=== PATIENT | female | born 1960 | race Caucasian/White ===

== ENCOUNTER → 2017-02-07 | Outpatient (CLI) | payer MEDICARE, OTHER | LOC: RAD 08:54 | PROVIDERS: ATTEND Physician Assistant Medical | DX: Z12.2 Encounter for screening for malignant neoplasm of respiratory organs (principal); F17.210 Nicotine dependence, cigarettes, uncomplicated | CPT/HCPCS: G0297 ==

== ENCOUNTER 2017-03-02 22:57 | Emergency (ER) | payer MEDICARE, OTHER ==
--- NOTE | 2017-03-02 23:36 | RADIOLOGY REPORT (SQ) ---
EXAM DESCRIPTION: CHEST SINGLE VIEW COMPLETED DATE/TIME: 03/02/2017 11:18 pm REASON FOR STUDY: SOB COMPARISON: 05/01/2015. EXAM PARAMETERS: NUMBER OF VIEWS: One view. TECHNIQUE: Single frontal radiographic view of the chest acquired. RADIATION DOSE: NA LIMITATIONS: None. FINDINGS: LUNGS AND PLEURA: Chronic interstitial changes. No infiltrates, masses or pneumothorax. N o pleural effusion. MEDIASTINUM AND HILAR STRUCTURES: No masses. Contour normal. HEART AND VASCULAR STRUCTURES: Heart normal in size. Normal vasculature. BONES: No acute findings. HARDWARE: Hardware in the cervical spine. OTHER: No other significant finding. IMPRESSION: NO ACUTE RADIOGRAPHIC FINDING IN THE CHEST. TECHNICAL DOCUMENTATION: JOB ID: [id number]
[2017-03-02 23:42] LABS: ABSOLUTE EOSINOPHILS # (AUTO) 0.1 10^3/uL (0.0-0.6); ABSOLUTE LYMPHOCYTES (AUTO) 3.1 10^3/uL (0.5-4.7); ABSOLUTE NEUT (AUTO) 6.5 10^3/uL (1.7-8.2); BASOPHILS % (AUTO) 0.3 % (0-2); EOSINOPHILS % (AUTO) 0.9 % (0-6); HEMATOCRIT 41.5 % (36.0-47.0); HEMOGLOBIN 14.1 g/dL (12.0-15.5); HGB HCT DIFFERENCE 0.8; MEAN CORPUSCULAR HGB CONC 33.8 g/dL (32.0-36.0); MEAN CORPUSCULAR VOLUME 92 fl (80-97); RED BLOOD COUNT 4.53 10^6/uL (3.72-5.28); RED CELL DISTRIBUTION WIDTH 14.8 % (11.5-14.0); SEGMENTED NEUTROPHILS % (AUTO) 60.8 % (42-78); WHITE BLOOD COUNT 10.6 10^3/uL (4.0-10.5)
[2017-03-02 23:53] LABS: ALANINE AMINOTRANSFERASE 25 U/L (9-52); ALBUMIN 3.9 g/dL (3.5-5.0); ALKALINE PHOSPHATASE 126 U/L (38-126); ANION GAP 10 (5-19); ASPARTATE AMINO TRANSFERASE 16 U/L (14-36); BILIRUBIN,DIRECT 0.4 mg/dL (0.0-0.4); BILIRUBIN,TOTAL 0.5 mg/dL (0.2-1.3); BLOOD UREA NITROGEN 11 mg/dL (7-20); CALCIUM 9.6 mg/dL (8.4-10.2); CARBON DIOXIDE 28 mmol/L (22-30); CHLORIDE 102 mmol/L (98-107); CREATININE RESULT 0.81 mg/dL (0.52-1.25); GLUCOSE 75 mg/dL (75-110); POTASSIUM 4.4 mmol/L (3.6-5.0); SODIUM 139.6 mmol/L (137-145); TOTAL PROTEIN 6.8 g/dL (6.3-8.2)
[2017-03-03 00:06] LABS: CREATINE KINASE MB 0.74 ng/mL (<4.55)
[2017-03-03 00:08] LABS: TROPONIN I < 0.012 ng/mL
[2017-03-03 00:10] LABS: APPEARANCE,URINE CLEAR; BILIRUBIN,URINE NEGATIVE (NEGATIVE); GLUCOSE, URINE NEGATIVE (NEGATIVE); KETONES,URINE NEGATIVE (NEGATIVE); LEUKOCYTE ESTERASE,URINE NEGATIVE (NEGATIVE); NITRITE,URINE NEGATIVE (NEGATIVE); PROTEIN,URINE NEGATIVE (NEGATIVE); URINE SPECIFIC GRAVITY 1.005; UROBILINOGEN,URINE NEGATIVE mg/dL (<2.0)
[2017-03-03 00:11] LABS: RBC,URINE 0-1 /HPF; WBC,URINE 0-1 /HPF
[2017-03-03] MEDS ORDERED: LIDOCAINE 5% (700 MG) TRANSDERMAL ADH..PATCH TP ONE (01:59)
[2017-03-03] MEDS ORDERED: NAPROXEN 250 MG TABLET PO ONE (01:59)
--- NOTE | 2017-03-03 02:02 | ER Document Report ---
ED General - General Chief Complaint: Shortness Of Breath Stated Complaint: SIDE PAIN Time Seen by Provider: 03/03/17 01:38 Notes: Patient is a 56-year-old female with a past medical history of COPD, chronic pain currently on 60 mg of oxycodone daily as well as 100 mcg fentanyl patch who presents with 3 days of progressively worsening pain over her left lower ribs. Describes as a severe, constant, stabbing pain that is worsened by any form of movement or taking a deep breath. States the pain can be so bad that it "takes my breath away" but denies any shortness of breath at baseline. No hemoptysis, estrogen use or history of unprovoked DVT or pulmonary embolus. She has not seen her primary care doctor regarding today's concerns. She denies any history of similar symptoms in the past. Denies any acute injury. TRAVEL OUTSIDE OF THE [place] IN LAST 30 DAYS: No - Related Data Allergies/Adverse Reactions: Sulfa (Sulfonamide Antibiotics) Allergy (Verified 05/01/15 14:48) Past Medical History - General Information source: Patient - Social History Smoking Status: Current Every Day Smoker Frequency of alcohol use: None Drug Abuse: None Lives with: Spouse/Significant other Family History: Reviewed & Not Pertinent Patient has suicidal ideation: No Patient has homicidal ideation: No - Past Medical History Cardiac Medical History: Reports: Hx Hypercholesterolemia Denies: Hx Congestive Heart Failure Pulmonary Medical History: Reports: Hx COPD Neurological Medical History: Reports: Hx Migraine - Hemiplegic migraine. Denies: Hx Cerebrovascular Accident Renal/ Medical History: Denies: Hx Peritoneal Dialysis Psychiatric Medical History: Reports: Hx Depression Past Surgical History: Reports: Hx Section - Immunizations Immunizations up to date: Yes Hx Diphtheria, Pertussis, Tetanus Vaccination: Yes Review of Systems - Review of Systems Notes: Constitutional: Negative for fever. HENT: Negative for sore throat. Eyes: Negative for visual changes. Cardiovascular: Negative for chest pain. Respiratory: Negative for shortness of breath. Gastrointestinal: Negative for abdominal pain, vomiting or diarrhea. Genitourinary: Negative for dysuria. Musculoskeletal: Positive for left rib pain Skin: Negative for rash. Neurological: Negative for headaches, weakness or numbness. 10 point ROS negative except as marked above and in HPI. Physical Exam - Vital signs Vitals: Temp Pulse Resp BP Pulse Ox 97.8 F 95 18 138/83 H 94 03/02/17 22:59 03/02/17 22:59 03/02/17 22:59 03/02/17 22:59 03/02/17 22:59 Interpretation: Normal Notes: PHYSICAL EXAMINATION: GENERAL: Well-appearing, well-nourished and in no acute distress. HEAD: Atraumatic, normocephalic. EYES: Pupils equal round and reactive to light, extraocular movements intact, sclera anicteric, conjunctiva are normal. ENT: nares patent, oropharynx clear without exudates. Moist mucous membranes. NECK: Normal range of motion, supple without lymphadenopathy LUNGS: Breath sounds clear to auscultation bilaterally and equal. No wheezes rales or rhonchi. HEART: Regular rate and rhythm without murmurs Chest wall: Exquisite pain on palpation of the left lower ribs. ABDOMEN: Soft, nontender, normoactive bowel sounds. No guarding, no rebound. No masses appreciated. EXTREMITIES: Normal range of motion, no pitting or edema. No cyanosis. NEUROLOGICAL: No focal neurological deficits. Moves all extremities spontaneously and on command. PSYCH: Normal mood, normal affect. SKIN: Warm, Dry, normal turgor, no rashes or lesions noted. Course - Re-evaluation Re-evalutation: 03/03/17 01:57 Patient presents with 3 days of progressively worsening left lower rib pain. This is completely reproducible on exam and with movement. She notes that any movement of the rib area worsens pain including deep breath. Although in triage it was noted as shortness of breath she denies any actual shortness of breath stating only that "sometimes the pain is so bad it takes my breath away" . Denies any hemoptysis, estrogen use, or any history of unprovoked DVT or pulmonary embolus. She is not tachycardic or tachypneic in triage or at time of my assessment. Overall I have a low clinical suspicion for an acute pulmonary embolus. Her Wells score is 0. I have reviewed with the patient the low probability of an acute pulmonary embolus and have reviewed signs and symptoms that would concern me and have requested her to return to the emergency department should she develop any other signs or symptoms of this diagnosis. I have also discussed with her the option of proceeding with d- dimer assay testing with the associated risk of a potential false positive result. She is in agreement with avoiding this test at this time. Chest x-ray is otherwise clear without any evidence of pneumothorax, rib fracture or lytic lesions. Labs unremarkable. At this time will discharge with return precautions and follow-up recommendations. Verbal discharge instructions given a the bedside and opportunity for questions given. Medication warnings reviewed. Patient is in agreement with this plan and has verbalized understanding of return precautions and the need for primary care follow-up in the next 24-72 hours. - Vital Signs Vital signs: Temp Pulse Resp BP Pulse Ox 97.8 F 89 20 148/86 H 95 03/02/17 22:59 03/03/17 02:15 03/03/17 02:15 03/03/17 02:15 03/03/17 02:15 - Laboratory Result Diagrams: 03/02/17 23:15 03/02/17 23:15 Laboratory results interpreted by me: 03/02/17 23:15 WBC 10.6 H RDW 14.8 H - Diagnostic Test Radiology reviewed: Image reviewed, Reports reviewed Radiology results interpreted by me: 03/03/17 02:03 Chest x-ray: No acute infiltrate or pneumothorax - EKG Interpretation by Me Additional EKG results interpreted by me: 03/03/17 02:34 Sinus rhythm. Rate 96. No ST elevations or depressions. QTC is 430. Discharge - Discharge Clinical Impression: Rib pain on left side Condition: Good Disposition: HOME, SELF-CARE Additional Instructions: Your chest wall pain is due to inflammation of your ribs. This pain can last for up to 6 weeks. It is very important that you continue to take purposeful deep breaths. For your pain: Continue to take naproxen 500mg every 6 hours or Tylenol 1000 mg every 6 hours. Apply local lidocaine to the area per bottle instructions. There is a product sold [id number] called "Aspercreme with lidocaine" that you can use for this purpose. Please follow-up with her primary care doctor in the next 2-3 days. Return to the emergency department immediately if you develop worsening shortness of breath, increased pain, begin coughing blood, pass out, or have any other symptoms that are worrisome to you.
[2017-03-03 02:16] VITALS: BP 148/86
--- NOTE | 2017-03-03 11:03 | EKG REPORT ---
SEVERITY:- OTHERWISE NORMAL ECG - SINUS RHYTHM LOW VOLTAGE IN FRONTAL LEADS : Confirmed by: Nurys Nice MD 03-Mar-2017 11:02:25
== END 2017-03-03 02:16 | disposition home or self-care (01) ==
LOC: ER 22:57
DX: R07.81 Pleurodynia (principal); J44.9 Chronic obstructive pulmonary disease, unspecified; G89.29 Other chronic pain; F17.200 Nicotine dependence, unspecified, uncomplicated; E78.00 Pure hypercholesterolemia, unspecified; Z79.891 Long term (current) use of opiate analgesic
CPT/HCPCS: 93005; 99285; 36415; 82553; 85025; 80053; 81001; 84484; 71010; 93010; A9270

== ENCOUNTER 2017-04-28 21:52 | Emergency (ER) | payer MEDICARE, OTHER ==
--- NOTE | 2017-04-28 23:08 | RADIOLOGY REPORT (SQ) ---
EXAM DESCRIPTION: CHEST SINGLE VIEW COMPLETED DATE/TIME: 04/28/2017 10:59 pm REASON FOR STUDY: shortness of breath COMPARISON: 03/02/2017 EXAM PARAMETERS: NUMBER OF VIEWS: One view. TECHNIQUE: Single frontal radiographic view of the chest acquired. RADIATION DOSE: NA LIMITATIONS: None. FINDINGS: LUNGS AND PLEURA: No acute opacities, masses or pneumothorax. No pleural effusion. MEDIASTINUM AND HILAR STRUCTURES: Stable. HEART AND VASCULAR STRUCTURES: Heart normal in size. Normal vasculature. BONES: No acute findings. HARDWARE: None in the chest. OTHER: No other significant finding. IMPRESSION: NO ACUTE RADIOGRAPHIC FINDING IN THE CHEST. TECHNICAL DOCUMENTATION: JOB ID: [id number]
[2017-04-28] MEDS ORDERED: PREDNISONE 20 MG TABLET PO ONE (23:58)
[2017-04-28] MEDS ORDERED: IPRATROPIUM/ALBUTEROL 0.5-2.5 MG/3 ML AMPUL NEB ONE (23:58)
--- NOTE | 2017-04-28 23:58 | ER Document Report ---
ED Respiratory Problem - General Mode of Arrival: Ambulatory Information source: Patient TRAVEL OUTSIDE OF THE [place] IN LAST 30 DAYS: No - HPI Patient complains to provider of: Cough, Short of breath Onset: Just prior to arrival Duration: Worse/persistent Quality of pain: No pain <ZARIA REDDY - Last Filed: 04/29/17 01:11> <MANUEL SUAREZ - Last Filed: 04/29/17 02:16> - General Chief Complaint: Shortness Of Breath Stated Complaint: DIFFICULTY BREATHING Time Seen by Provider: 04/28/17 23:42 Notes: Patient is a 57 year old female that presents to the emergency department today with complaints of shortness of breath with a productive cough with yellow sputum. Patient just finished a ten day course of levaquin yesterdaty. Patient states that she was started on the antibiotics Dr. Sanz for "bronchitis". Patient states that she was not started on any steroids. Patient is on 2L of home oxygen daily but patient states she is still short of breath. Patient denies any fevers. (ZARIA REDDY) - Related Data Allergies/Adverse Reactions: Sulfa (Sulfonamide Antibiotics) Allergy (Verified 04/28/17 22:30) Past Medical History - General Information source: Patient - Social History Smoking Status: Current Every Day Smoker Cigarette use (# per day): Yes Frequency of alcohol use: None Drug Abuse: None Lives with: Family Family History: Reviewed & Not Pertinent Patient has suicidal ideation: No Patient has homicidal ideation: No - Past Medical History Cardiac Medical History: Reports: Hx Hypercholesterolemia Pulmonary Medical History: Reports: Hx COPD Neurological Medical History: Reports: Hx Migraine - Hemiplegic migraine Psychiatric Medical History: Reports: Hx Depression Past Surgical History: Reports: Hx Section - Immunizations Immunizations up to date: Yes Hx Diphtheria, Pertussis, Tetanus Vaccination: Yes <ZARIA REDDY - Last Filed: 04/29/17 01:11> Review of Systems - Review of Systems Constitutional: denies: Fever EENT: No symptoms reported Cardiovascular: No symptoms reported Respiratory: See HPI, Cough, Short of breath Gastrointestinal: No symptoms reported Genitourinary: No symptoms reported Female Genitourinary: No symptoms reported Musculoskeletal: No symptoms reported Skin: No symptoms reported Hematologic/Lymphatic: No symptoms reported Neurological/Psychological: No symptoms reported -: Yes All other systems reviewed and negative <JULIEN REDDYON - Last Filed: 04/29/17 01:11> Physical Exam <MAUREENZARIA - Last Filed: 04/29/17 01:11> <MANUEL SUAREZ - Last Filed: 04/29/17 02:16> - Vital signs Vitals: Temp Pulse Resp BP Pulse Ox 97.5 F 88 20 105/63 97 04/28/17 22:22 04/28/17 22:22 04/28/17 22:22 04/28/17 22:22 04/28/17 22:22 - Notes Notes: Physical Exam: General: Alert, appears well. HEENT: Normocephalic. Atraumatic. PERRL. Extraocular movements intact. Oropharynx clear. Neck: Supple. Non-tender. Respiratory: No respiratory distress, 100% O2 saturation on 2L of oxygen, patient is on 2L of oxygen at home. Diffuse wheezing with rhonchi. Slightly tachypneic. Cardiovascular: Regular rate and rhythm. Abdominal: Normal Inspection. Non-tender. No distension. Normal Bowel Sounds. Back: Non-tender. No deformity or step off. Extremities: Moves all four extremities. Upper extremities: Normal inspection. Normal ROM. Lower extremities: Normal inspection. No edema. Normal ROM. Neurological: Normal cognition. AAOx4. Normal speech. Psychological: Normal affect. Normal Mood. Skin: Warm. Dry. Normal color. (ZARIA REDDY) Course - Laboratory Result Diagrams: 04/28/17 23:49 04/28/17 23:49 <MAUREENZARIA - Last Filed: 04/29/17 01:11> - Laboratory Result Diagrams: 04/28/17 23:49 04/28/17 23:49 - Diagnostic Test Radiology reviewed: Image reviewed, Reports reviewed - Chest x-ray does show some COPD, there are no acute changes. - EKG Interpretation by Me EKG shows normal: Sinus rhythm, Russell, Intervals, QRS Complexes, ST-T Waves Rate: Normal - 95 Rhythm: NSR <MANUEL SUAREZ - Last Filed: 04/29/17 02:16> - Re-evaluation Re-evalutation: 04/29/17 02:03 At this time the patient's pulse ox is 97% while she is sitting up talking on 2 L. Lungs are actually quite clear now and she does admit that her breathing feels much better after the breathing treatments here. She has not been able to get a sputum specimen since she arrived, and thinks if she could get a cigarette that it would help her bring up the sputum. (MANUEL SUAREZ) - Vital Signs Vital signs: Temp Pulse Resp BP Pulse Ox 97.5 F 98 12 105/66 100 04/28/17 22:22 04/28/17 23:58 04/29/17 00:01 04/29/17 00:01 04/29/17 00:01 - Laboratory Laboratory results interpreted by me: 04/28/17 04/28/17 23:49 23:49 WBC 11.7 H RDW 14.4 H Absolute Neutrophils 8.8 H Chloride 108 H Glucose 117 H Creatine Kinase 157 H Discharge <ZARIA REDDY - Last Filed: 04/29/17 01:11> <MANUEL SUAREZ - Last Filed: 04/29/17 02:16> - Discharge Clinical Impression: COPD exacerbation Condition: Stable Disposition: HOME, SELF-CARE Additional Instructions: Start the prednisone later today. Drink plenty of fluids. Use your nebulizer every 4 hours. Follow-up with your doctor if not continuing to improve. RETURN TO THE EMERGENCY ROOM IF ANY NEW OR WORSENING SYMPTOMS. Prescriptions: Prednisone [Deltasone 10 mg Tablet] 10 mg PO ASDIR PRN #21 tablet PRN Reason: Scribe Attestation: 04/29/17 00:32 I personally performed the services described in the documentation, reviewed and edited the documentation which was dictated to the scribe in my presence, and it accurately records my words and actions. (MANUEL SUAREZ) Scribe Documentation - Scribe Written by Ju:: Ju Loyd, 04/29/2017 0136 acting as scribe for :: Fili <ZARIA REDDY - Last Filed: 04/29/17 01:11>
[2017-04-29 00:13] LABS: ABSOLUTE EOSINOPHILS # (AUTO) 0.1 10^3/uL (0.0-0.6); ABSOLUTE LYMPHOCYTES (AUTO) 2.2 10^3/uL (0.5-4.7); ABSOLUTE MONOCYTES (AUTO) 0.7 10^3/uL (0.1-1.4); ABSOLUTE NEUT (AUTO) 8.8 10^3/uL (1.7-8.2); BASOPHILS % (AUTO) 0.3 % (0-2); EOSINOPHILS % (AUTO) 0.6 % (0-6); HEMATOCRIT 41.6 % (36.0-47.0); HEMOGLOBIN 13.9 g/dL (12.0-15.5); HGB HCT DIFFERENCE 0.1; LYMPHOCYTES % (AUTO) 18.6 % (13-45); MEAN CORPUSCULAR HEMOGLOBIN 31.5 pg (27.0-33.4); MEAN CORPUSCULAR HGB CONC 33.5 g/dL (32.0-36.0); MEAN CORPUSCULAR VOLUME 94 fl (80-97); RED BLOOD COUNT 4.42 10^6/uL (3.72-5.28); RED CELL DISTRIBUTION WIDTH 14.4 % (11.5-14.0); SEGMENTED NEUTROPHILS % (AUTO) 74.5 % (42-78); WHITE BLOOD COUNT 11.7 10^3/uL (4.0-10.5)
[2017-04-29 00:27] LABS: ALANINE AMINOTRANSFERASE 22 U/L (9-52); ALKALINE PHOSPHATASE 93 U/L (38-126); ANION GAP 11 (5-19); ASPARTATE AMINO TRANSFERASE 23 U/L (14-36); BILIRUBIN,DIRECT 0.4 mg/dL (0.0-0.4); BILIRUBIN,TOTAL 0.5 mg/dL (0.2-1.3); BLOOD UREA NITROGEN 10 mg/dL (7-20); CALCIUM 9.3 mg/dL (8.4-10.2); CARBON DIOXIDE 23 mmol/L (22-30); CHLORIDE 108 mmol/L (98-107); CREATINE KINASE 157 U/L (30-135); GLUCOSE 117 mg/dL (75-110); SODIUM 141.5 mmol/L (137-145); TOTAL PROTEIN 6.8 g/dL (6.3-8.2)
[2017-04-29 00:38] LABS: CREATINE KINASE MB 0.93 ng/mL (<4.55)
[2017-04-29 00:44] LABS: TROPONIN I < 0.012 ng/mL
[2017-04-29] MEDS ORDERED: ALBUTEROL SULFATE 0.083% NEB 2.5 MG/3 ML AMPUL NEB ONE (01:28)
[2017-04-29 02:25] VITALS: BP 110/70
--- NOTE | 2017-04-29 09:57 | EKG REPORT ---
SEVERITY:- BORDERLINE ECG - SINUS RHYTHM LOW VOLTAGE EKG : Confirmed by: Tavo Vang MD 29-Apr-2017 09:57:02
== END 2017-04-29 02:18 | disposition home or self-care (01) ==
LOC: ER 21:52
DX: J44.1 Chronic obstructive pulmonary disease with (acute) exacerbation (principal); Z99.81 Dependence on supplemental oxygen; R06.02 Shortness of breath; R05 Cough; Z88.2 Allergy status to sulfonamides; F17.210 Nicotine dependence, cigarettes, uncomplicated
CPT/HCPCS: 93005; 94640 ×2; 99285; 36415; 82553; 82550; 85025; 80053; 84484; 83880; 71010; 93010; A9270 ×3; J7512; J7620

== ENCOUNTER 2018-05-13 21:19 | Emergency (ER) | payer MEDICARE, OTHER ==
[2018-05-13] MEDS ORDERED: LIDOCAINE 5% (700 MG) TRANSDERMAL ADH..PATCH TP ONE (21:53)
[2018-05-13] MEDS ORDERED: ACETAMINOPHEN 325 MG TABLET PO ONE (21:53)
[2018-05-13] MEDS ORDERED: KETOROLAC TROMETHAMINE 60 MG/2 ML SDV IM ONE (21:53)
--- NOTE | 2018-05-13 21:54 | ER Document Report ---
ED General - General Chief Complaint: Knee Pain Stated Complaint: RIGHT KNEE PAIN Time Seen by Provider: 05/13/18 21:52 Notes: Patient is a 58-year-old female who presents with right knee pain. Patient reports that the pain started after she stepped down off of a ladder hurt her right knee "pop". She states that she developed an immediate, throbbing, constant pain to the knee that has made it difficult to ambulate. She notes any attempt at ranging the knee or walking worsens the pain. Symptoms have worsened since onset. She denies any history of similar injury to the knee in the past. She has not seen her general doctor regarding today's concerns. She denies any additional injuries or concerns today. She denies any focal weakness or numbness. TRAVEL OUTSIDE OF THE [place] IN LAST 30 DAYS: No - Related Data Allergies/Adverse Reactions: Sulfa (Sulfonamide Antibiotics) Allergy (Verified 04/28/17 22:30) Past Medical History - General Information source: Patient - Social History Smoking Status: Never Smoker Frequency of alcohol use: None Drug Abuse: None Lives with: Spouse/Significant other Family History: Reviewed & Not Pertinent - Past Medical History Cardiac Medical History: Reports: Hx Hypercholesterolemia Denies: Hx Congestive Heart Failure Pulmonary Medical History: Reports: Hx COPD Neurological Medical History: Reports: Hx Migraine - Hemiplegic migraine. Denies: Hx Cerebrovascular Accident Renal/ Medical History: Denies: Hx Peritoneal Dialysis Psychiatric Medical History: Reports: Hx Depression Past Surgical History: Reports: Hx Section - Immunizations Immunizations up to date: Yes Hx Diphtheria, Pertussis, Tetanus Vaccination: Yes Review of Systems - Review of Systems Notes: Constitutional: Negative for fever. HENT: Negative for sore throat. Eyes: Negative for visual changes. Cardiovascular: Negative for chest pain. Respiratory: Negative for shortness of breath. Gastrointestinal: Negative for abdominal pain, vomiting or diarrhea. Genitourinary: Negative for dysuria. Musculoskeletal: Positive for right knee injury Skin: Negative for rash. Neurological: Negative for headaches, weakness or numbness. 10 point ROS negative except as marked above and in HPI. Physical Exam - Vital signs Vitals: Temp Pulse Resp BP Pulse Ox 98.6 F 88 14 94/55 L 91 L 05/13/18 21:24 05/13/18 21:24 05/13/18 21:24 05/13/18 21:24 05/13/18 21:24 Notes: PHYSICAL EXAMINATION: GENERAL: Well-appearing, well-nourished and in no acute distress. HEAD: Atraumatic, normocephalic. EYES: Pupils equal round and reactive to light, extraocular movements intact, sclera anicteric, conjunctiva are normal. ENT: nares patent, oropharynx clear without exudates. Moist mucous membranes. NECK: Normal range of motion, supple without lymphadenopathy LUNGS: Breath sounds clear to auscultation bilaterally and equal. No wheezes rales or rhonchi. HEART: Regular rate and rhythm without murmurs, 2+ DP pulses bilaterally ABDOMEN: Soft, nontender, normoactive bowel sounds. No guarding, no rebound. No masses appreciated. EXTREMITIES: Normal range of motion both actively and passively at the right but there is obvious discomfort with flexion of the knee. Palpation of the medial aspect of the knee joint does elicit significant pain. No bruising to the knee although there is mild swelling relative to the left. NEUROLOGICAL: No focal neurological deficits. Moves all extremities spontaneously and on command. PSYCH: Normal mood, normal affect. SKIN: Warm, Dry, normal turgor, no rashes or lesions noted. Course - Re-evaluation Re-evalutation: 05/13/18 23:24 No evidence of a septic joint, gout flare, dislocation, or fracture on exam and imaging. Vitals wnl. At this time, I do not see an indication for labs or further imaging. KAYLEIGH normal. Suspect a possible meniscal injury and I have informed the patient that she will need to follow-up with orthopedic surgery if she is not having improvement of her pain over the next 1-2 weeks with conservative measures for consideration of an MRI. At this time will discharge with return precautions and follow-up recommendations. Verbal discharge instructions given a the bedside and opportunity for questions given. Medication warnings reviewed. Patient is in agreement with this plan and has verbalized understanding of return precautions and the need for primary care follow-up in the next 24-72 hours. - Vital Signs Vital signs: Temp Pulse Resp BP Pulse Ox 97.7 F 75 18 123/62 93 05/14/18 00:03 05/14/18 00:03 05/14/18 00:03 05/14/18 00:03 05/14/18 00:03 - Diagnostic Test Radiology reviewed: Image reviewed, Reports reviewed Radiology results interpreted by me: 05/13/18 23:26 Right knee x-ray: No acute fracture or dislocation Discharge - Discharge Clinical Impression: Right knee pain Qualifiers: Chronicity: acute Qualified Code(s): M25.561 - Pain in right knee Condition: Good Disposition: HOME, SELF-CARE Additional Instructions: Your x-ray does not show any acute fracture today. You likely have a ligamentous strain although a meniscal injury is of concern. You should take naproxen 440 mg (2 [id number]-bjf-napgaoj tablets) every 12 hours for pain. Continue to apply ice to the area is much your able. Please follow-up with your primary care physician if you do not have improving your symptoms in the next 1-2 weeks. They may wish to consider an orthopedic referral and MRI. Please return immediately if you develop weakness, numbness, spreading redness from the area, or any other symptoms that are concerning to you. Referrals: JAREN SHARMA MD [Primary Care Provider] - Follow up as needed
--- NOTE | 2018-05-13 22:34 | RADIOLOGY REPORT (SQ) ---
EXAM DESCRIPTION: KNEE RIGHT 3 VIEWS COMPLETED DATE/TIME: 05/13/2018 10:26 pm REASON FOR STUDY: knee pain, injury COMPARISON: None. NUMBER OF VIEWS: Three views. TECHNIQUE: AP, lateral, and sunrise patella radiographic images acquired of the right knee. LIMITATIONS: None. FINDINGS: MINERALIZATION: Normal. BONES: No acute fracture or dislocation. No worrisome bone lesions. JOINT: No effusion. SOFT TISSUES: No soft tissue swelling. No radio-opaque foreign body. OTHER: No other significant finding. IMPRESSION: NEGATIVE STUDY OF THE RIGHT KNEE. NO RADIOGRAPHIC EVIDENCE OF ACUTE INJURY. TECHNICAL DOCUMENTATION: JOB ID: [id number] [employer]- All Rights Reserved Reading location - IP/workstation name: [email or web address]
[2018-05-14 00:05] VITALS: BP 123/62
== END 2018-05-14 00:03 | disposition home or self-care (01) ==
LOC: ER 21:19
DX: M25.561 Pain in right knee (principal); E78.00 Pure hypercholesterolemia, unspecified; J44.9 Chronic obstructive pulmonary disease, unspecified; Z88.2 Allergy status to sulfonamides
CPT/HCPCS: 99283; 96372; 73562; L1830; A9270; J1885

== ENCOUNTER 2019-02-11 10:03 | Emergency (ER) | payer MEDICARE, OTHER ==
--- NOTE | 2019-02-11 11:06 | ER Document Report ---
ED Medical Screen (RME) - General Chief Complaint: Foot Pain Stated Complaint: SWOLLEN FOOT Time Seen by Provider: 02/11/19 11:00 Primary Care Provider: JAREN SHARMA MD [Primary Care Provider] - Follow up as needed Mode of Arrival: Ambulatory Information source: Patient TRAVEL OUTSIDE OF THE [place] IN LAST 30 DAYS: No - HPI Patient complains to provider of: RIGHT FOOT PAIN/SWELLING Notes: 02/11/19 11:05 Patient here with complaints of right foot pain and swelling for the last week. No injury. No fever. No redness. No numbness, tingling, weakness. She does have a history of a DVT 2 years ago after having surgery. She is not currently on anticoagulants. Exam Pitting edema noted to the right lower extremity with swelling of the right foot and tenderness to the dorsum of the right foot. No redness. Normal pulse and sensation. Normal cap refill. There is some pitting edema to the left lower extremity as well but not as much as the right. Plan CBC, CMP, PT/PTT, x-ray of the right foot, venous Doppler of the right lower extremity. An initial examination was made on the patient as part of the triage process, and it was determined a more comprehensive evaluation was necessary. Initial labs were ordered and patient was transferred to another provider in the ED who assumed care and finished evaluation and plan. - Related Data Allergies/Adverse Reactions: Sulfa (Sulfonamide Antibiotics) Allergy (Verified 04/28/17 22:30) Past Medical History - Past Medical History Cardiac Medical History: Reports: Hx Hypercholesterolemia Denies: Hx Congestive Heart Failure Pulmonary Medical History: Reports: Hx COPD Neurological Medical History: Reports: Hx Migraine - Hemiplegic migraine. Denies: Hx Cerebrovascular Accident Renal/ Medical History: Denies: Hx Peritoneal Dialysis Psychiatric Medical History: Reports: Hx Depression Past Surgical History: Reports: Hx Section - Immunizations Immunizations up to date: Yes Hx Diphtheria, Pertussis, Tetanus Vaccination: Yes Physical Exam - Vital signs Vitals: Temp Pulse Resp BP Pulse Ox 97.7 F 106 H 16 120/57 L 92 02/11/19 10:09 02/11/19 10:09 02/11/19 10:02/11/19 10:02/11/19 10:09 Course - Vital Signs Vital signs: Temp Pulse Resp BP Pulse Ox 97.7 F 106 H 16 120/57 L 92 02/11/19 10:09 02/11/19 10:09 02/11/19 10:09 02/11/19 10:09 02/11/19 10:09 Doctor's Discharge - Discharge Referrals: JAREN SHARMA MD [Primary Care Provider] - Follow up as needed
[2019-02-11 11:37] LABS: INTERNATIONAL RATION (INR) 0.92; PROTHROMBIN TIME 12.8 SEC (11.4-15.4)
[2019-02-11 11:38] LABS: ABSOLUTE EOSINOPHILS # (AUTO) 0.1 10^3/uL (0.0-0.6); ABSOLUTE LYMPHOCYTES (AUTO) 1.5 10^3/uL (0.5-4.7); ABSOLUTE MONOCYTES (AUTO) 0.5 10^3/uL (0.1-1.4); ABSOLUTE NEUT (AUTO) 5.1 10^3/uL (1.7-8.2); BASOPHILS % (AUTO) 0.3 % (0-2); EOSINOPHILS % (AUTO) 0.9 % (0-6); HEMATOCRIT 43.9 % (36.0-47.0); HEMOGLOBIN 14.8 g/dL (12.0-15.5); LYMPHOCYTES % (AUTO) 20.8 % (13-45); MEAN CORPUSCULAR HEMOGLOBIN 31.1 pg (27.0-33.4); MEAN CORPUSCULAR HGB CONC 33.7 g/dL (32.0-36.0); MEAN CORPUSCULAR VOLUME 92 fl (80-97); MONOCYTES % (AUTO) 7.4 % (3-13); PLATELET COUNT 209 10^3/uL (150-450); RED BLOOD COUNT 4.76 10^6/uL (3.72-5.28); SEGMENTED NEUTROPHILS % (AUTO) 70.6 % (42-78); TOTAL CELLS COUNTED % (AUTO) 100 %; WHITE BLOOD COUNT 7.2 10^3/uL (4.0-10.5)
[2019-02-11 11:54] LABS: ALANINE AMINOTRANSFERASE 32 U/L (9-52); ALBUMIN 3.9 g/dL (3.5-5.0); ALKALINE PHOSPHATASE 104 U/L (38-126); ANION GAP 7 (5-19); ASPARTATE AMINO TRANSFERASE 25 U/L (14-36); BILIRUBIN,DIRECT 0.2 mg/dL (0.0-0.4); BILIRUBIN,TOTAL 0.3 mg/dL (0.2-1.3); BLOOD UREA NITROGEN 9 mg/dL (7-20); CALCIUM 9.7 mg/dL (8.4-10.2); CARBON DIOXIDE 28 mmol/L (22-30); CHLORIDE 109 mmol/L (98-107); GLUCOSE 101 mg/dL (75-110); POTASSIUM 4.5 mmol/L (3.6-5.0); SODIUM 143.6 mmol/L (137-145); TOTAL PROTEIN 6.4 g/dL (6.3-8.2)
--- NOTE | 2019-02-11 12:23 | RADIOLOGY REPORT (SQ) ---
EXAM DESCRIPTION: FOOT RIGHT COMPLETE COMPLETED DATE/TIME: 02/11/2019 12:10 pm REASON FOR STUDY: RIGHT FOOT PAIN/SWELLING COMPARISON: None. NUMBER OF VIEWS: Three views. TECHNIQUE: AP, lateral and oblique without weight bearing radiographic images acquired of the right foot. LIMITATIONS: None. FINDINGS: MINERALIZATION: Normal. BONES: No acute fracture or dislocation. No worrisome bone lesions. No significant osteophytes. JOINTS: No erosions. No renetta-articular osteopenia. No chondrocalcinosis. SOFT TISSUES: No swelling. No calcifications. OTHER: No other significant finding. IMPRESSION: NEGATIVE STUDY OF THE RIGHT FOOT. NO EXPLANATION FOR PAIN. TECHNICAL DOCUMENTATION: JOB ID: [id number] [employer]- All Rights Reserved Reading location - IP/workstation name: [email or web address]
--- NOTE | 2019-02-11 12:29 | RADIOLOGY REPORT (SQ) ---
EXAM DESCRIPTION: VENOUS UNILATERAL LOWER COMPLETED DATE/TIME: 02/11/2019 12:19 pm REASON FOR STUDY: RIGHT LEG SWELLING COMPARISON: None. TECHNIQUE: Dynamic and static kuhn scale and color images acquired of the right leg venous system. S elected spectral images acquired with additional compression and augmentation maneuvers. The contrala teral common femoral vein and saphenofemoral junction were also imaged. Images stored on PACS. LIMITATIONS: None. FINDINGS: COMMON FEMORAL: Normal phasicity, compression and augmentation. No visualized echogenic ma terial on kuhn scale. No defects on color images. FEMORAL: Normal compression and augmentation. No visualized echogenic material on kuhn scale. No defe cts on color images. POPLITEAL: Normal compression, augmentation. No visualized echogenic material on kuhn scale. No defec ts on color images. CALF VESSELS: Normal compression, augmentation. No visualized echogenic material on kuhn scale. No de fects on color images. GSV and SSV: Normal compression, augmentation. No visualized echogenic material on kuhn scale. No def ects on color images. ANY DEEP VENOUS INSUFFICIENCY: No. ANY EVIDENCE OF POPLITEAL CYST: No. OTHER: No other significant finding. CONTRALATERAL COMMON FEMORAL VEIN AND SAPHENOFEMORAL JUNCTION: Normal phasicity, compression and augmentation. No visualized echogenic material on kuhn scale. No de fects on color images. IMPRESSION: NO EVIDENCE DVT OR SVT IN THE RIGHT LEG. TECHNICAL DOCUMENTATION: JOB ID: [id number] [employer]- All Rights Reserved Reading location - IP/workstation name: [email or web address]
--- NOTE | 2019-02-11 15:16 | ER Document Report ---
ED Extremity Problem, Lower - General Chief Complaint: Foot Pain Stated Complaint: SWOLLEN FOOT Time Seen by Provider: 02/11/19 11:00 Primary Care Provider: JAREN SHARMA MD [Primary Care Provider] - Follow up as needed Mode of Arrival: Ambulatory Information source: Patient Notes: 58-year-old female with some nontraumatic right dorsal foot pain for 1 week. Painful when she walks. She denies any hip pain, thigh pain, knee pain, calf pain, or ankle pain. She denies any fever, chest pain, or shortness of breath. Patient states her baseline pitting edema to bilateral lower extremities. Patient had a DVT 2 years ago after back surgery. TRAVEL OUTSIDE OF THE [place] IN LAST 30 DAYS: No - Related Data Allergies/Adverse Reactions: Sulfa (Sulfonamide Antibiotics) Allergy (Verified 04/28/17 22:30) Past Medical History - General Information source: Patient - Social History Smoking Status: Current Every Day Smoker Chew tobacco use (# tins/day): No Frequency of alcohol use: None Drug Abuse: None Family History: Reviewed & Not Pertinent Patient has suicidal ideation: No Patient has homicidal ideation: No - Past Medical History Cardiac Medical History: Reports: Hx Hypercholesterolemia Denies: Hx Congestive Heart Failure Pulmonary Medical History: Reports: Hx COPD Neurological Medical History: Reports: Hx Migraine - Hemiplegic migraine. Merlin es: Hx Cerebrovascular Accident Renal/ Medical History: Denies: Hx Peritoneal Dialysis Psychiatric Medical History: Reports: Hx Depression Past Surgical History: Reports: Hx Section - Immunizations Immunizations up to date: Yes Hx Diphtheria, Pertussis, Tetanus Vaccination: Yes Review of Systems - Review of Systems Constitutional: denies: Fever EENT: denies: Eye discharge, Nose discharge Cardiovascular: denies: Chest pain, Palpitations, Lightheaded Respiratory: denies: Cough, Short of breath Gastrointestinal: denies: Vomiting Musculoskeletal: denies: Joint pain Skin: denies: Rash Neurological/Psychological: Other - no slurred speech -: Yes All other systems reviewed and negative Physical Exam - Vital signs Vitals: Temp Pulse Resp BP Pulse Ox 97.7 F 106 H 16 120/57 L 92 02/11/19 10:09 02/11/19 10:09 02/11/19 10:09 02/11/19 10:02/11/19 10:09 Notes: Reviewed vital signs and nursing note as charted by RN. CONSTITUTIONAL: Alert and oriented and responds appropriately to questions. Well-appearing; well-nourished HEAD: Normocephalic; atraumatic CARD: Regular rate and rhythm; no murmurs; symmetric distal pulses RESP: Normal chest excursion without splinting or tachypnea; breath sounds clear and equal bilaterally; no wheezes, no rhonchi, no rales EXT: She has some tenderness to the dorsal aspect of the right foot. There is no pain to the toes, ankle, or plantar aspect of the foot. No obvious deformity or swelling noted. Normal warmth, strong pulses, good capillary refill with sensation intact. Nontender pitting edema to bilateral shins. No calf pain or tenderness SKIN: No acute lesions noted NEURO: CN 2-12 intact; 5/5 bilateral upper and lower extremity strength with sensation intact to light touch PSYCH: The patient's mood and manner are appropriate. Grooming and personal hygiene are appropriate. Course - Re-evaluation Re-evalutation: 02/11/19 15:15 Given the history and physical, in triage the patient had a Doppler ultrasound of the right lower extremity ordered as well as an x-ray of the right foot. No DVT or fractures noted. No change in exam. Patient's pain is still just to the pinpoint area of the dorsal aspect with no obvious swelling, erythema, or deformity. Patient does have a very small punctate lesion to the right lateral malleolus that is nontender and nonfluctuant with no surrounding erythema. Given the extensive history and physical, would laboratory work that was performed in triage, with an x-ray and Doppler ultrasound showing no clot of fractures, patient will be placed in a [place] shoe with strict return precautions, crutches, and follow-up with orthopedics. Patient is already on the pain management specially clinic program. I do not believe antibiotics are necessary at this moment. - Vital Signs Vital signs: Temp Pulse Resp BP Pulse Ox 97.7 F 106 H 16 120/57 L 92 02/11/19 10:09 02/11/19 10:09 02/11/19 10:09 02/11/19 10:09 02/11/19 10:09 - Laboratory Result Diagrams: 02/11/19 11:12 02/11/19 11:12 Laboratory results interpreted by me: 02/11/19 11:12 Chloride 109 H Discharge - Discharge Clinical Impression: Right foot pain Condition: Good Disposition: HOME, SELF-CARE Additional Instructions: Come back immediately for any increased pain, swelling, fever, vomiting, calf pain or leg swelling, shortness of breath, or any other acute problems. Please follow-up with orthopedics as we have discussed. Please ice, rest, and elevate your legs as discussed. Referrals: JAREN SHARMA MD [Primary Care Provider] - Follow up as needed KADIE ROTH DO [ACTIVE STAFF] - Follow up as needed
[2019-02-11 15:34] VITALS: BP 122/72
== END 2019-02-11 15:38 | disposition home or self-care (01) ==
LOC: ER 10:03
DX: M79.671 Pain in right foot (principal); M79.89 Other specified soft tissue disorders; Z86.718 Personal history of other venous thrombosis and embolism; F17.200 Nicotine dependence, unspecified, uncomplicated; J44.9 Chronic obstructive pulmonary disease, unspecified
CPT/HCPCS: 36415; 80053; 85025; 85610; 85730; 93971; 99284

== ENCOUNTER 2019-10-31 23:52 | Emergency (ER) | payer MEDICARE, OTHER ==
[2019-11-01] MEDS ORDERED: OXYCODONE HCL SR 10 MG TABLET PO ONE (00:36)
--- NOTE | 2019-11-01 00:39 | ER Document Report ---
ED Medical Screen (RME) - General Chief Complaint: Leg Pain Stated Complaint: RIGHT CALF PAIN Time Seen by Provider: 11/01/19 00:32 Primary Care Provider: JAREN SHARMA MD [Primary Care Provider] - Follow up as needed Notes: Patient is a 59-year-old female with a history of high cholesterol, COPD, asthma who presents the emergency department with a chief complaint of right calf pain. Patient reports she has a history of DVT 2 years ago. Patient reports that the right calf pain that started yesterday feels the same. Patient reports slight swelling to the right calf when compared to the left. Patient denies injury to the leg. Patient reports is not currently on blood thinners. TRAVEL OUTSIDE OF THE [place] IN LAST 30 DAYS: No - Related Data Allergies/Adverse Reactions: Sulfa (Sulfonamide Antibiotics) Allergy (Verified 11/01/19 00:31) Past Medical History - Past Medical History Cardiac Medical History: Reports: Hx Hypercholesterolemia Denies: Hx Congestive Heart Failure Pulmonary Medical History: Reports: Hx COPD Neurological Medical History: Reports: Hx Migraine - Hemiplegic migraine. Denies: Hx Cerebrovascular Accident Renal/ Medical History: Denies: Hx Peritoneal Dialysis Psychiatric Medical History: Reports: Hx Depression Past Surgical History: Reports: Hx Section - Immunizations Immunizations up to date: Yes Hx Diphtheria, Pertussis, Tetanus Vaccination: Yes Physical Exam - Vital signs Vitals: Temp Pulse Resp BP Pulse Ox 97.6 F 94 18 118/68 92 11/01/19 00:11 11/01/19 00:11 11/01/19 00:11 11/01/19 00:11 11/01/19 00:11 Course - Re-evaluation Re-evalutation: 11/01/19 00:38 Patient does have right posterior calf pain with palpation. Patient will require a thorough lower extremity examination in the back when placed into a gown as it is not appropriate in triage. Patient does have a history of DVT and reports feeling the same type of discomfort. Patient not on blood thinners. Patient reports she does take oxycodone 10 mg every 4-6 hours as needed for her chronic back pain. Patient reports she has not had this medication in over 6 hours. We will give patient a dose of medication here in the emergency department. Patient aware that we do not have venous Doppler available until 8 AM in the morning. Patient reports at this time she would like to wait. I have greeted and performed a rapid initial assessment of this patient. A comprehensive ED assessment and evaluation of the patient, analysis of test results and completion of the medical decision making process will be conducted by additional ED providers. - Vital Signs Vital signs: Temp Pulse Resp BP Pulse Ox 97.6 F 94 18 118/68 92 11/01/19 00:11 11/01/19 00:11 11/01/19 00:11 11/01/19 00:11 11/01/19 00:11 Doctor's Discharge - Discharge Referrals: JAREN SHARMA MD [Primary Care Provider] - Follow up as needed
[2019-11-01] MEDS ORDERED: HYDROMORPHONE HCL INJ/PF 2 MG/ML AMPULE IM ONE (03:52)
[2019-11-01] MEDS ORDERED: ENOXAPARIN SODIUM INJ 80 MG/0.8 ML DISP.SYRIN SUBCUT ONE (03:54)
--- NOTE | 2019-11-01 03:57 | ER Document Report ---
ED Extremity Problem, Lower - General Chief Complaint: Leg Pain Stated Complaint: RIGHT CALF PAIN Time Seen by Provider: 11/01/19 00:32 Primary Care Provider: JAREN SHARMA MD [Primary Care Provider] - Follow up as needed Notes: Patient is a 59-year-old female that comes to the emergency department for chief complaint of of right leg pain. She states for the past 2 days she has noted some subtle swelling and some developing pain in the right calf area. She denies severe tenderness, redness, fever, and she is still able to ambulate without difficulty. She reports that she has had a DVT years ago after back raquel can and she is concerned she is developing one now. She denies injury. She continues to smoke. She is not on any blood thinners. She denies any other complaints including chest pain or shortness of breath. TRAVEL OUTSIDE OF THE [place] IN LAST 30 DAYS: No - Related Data Allergies/Adverse Reactions: Sulfa (Sulfonamide Antibiotics) Allergy (Verified 11/01/19 00:31) Past Medical History - General Information source: Patient - Social History Smoking Status: Current Every Day Smoker Smoking Education Provided: Yes - <3 min Frequency of alcohol use: None Drug Abuse: None Lives with: Family Family History: Reviewed & Not Pertinent Patient has suicidal ideation: No Patient has homicidal ideation: No - Past Medical History Cardiac Medical History: Reports: Hx DVT, Hx Hypercholesterolemia Denies: Hx Congestive Heart Failure Pulmonary Medical History: Reports: Hx COPD Neurological Medical History: Reports: Hx Migraine - Hemiplegic migraine. Denies: Hx Cerebrovascular Accident Renal/ Medical History: Denies: Hx Peritoneal Dialysis Psychiatric Medical History: Reports: Hx Depression Past Surgical History: Reports: Hx Section - Immunizations Immunizations up to date: Yes Hx Diphtheria, Pertussis, Tetanus Vaccination: Yes Review of Systems - Review of Systems Constitutional: No symptoms reported EENT: No symptoms reported Cardiovascular: See HPI Respiratory: No symptoms reported Gastrointestinal: No symptoms reported Genitourinary: No symptoms reported Female Genitourinary: No symptoms reported Musculoskeletal: See HPI Skin: No symptoms reported Hematologic/Lymphatic: See HPI Neurological/Psychological: No symptoms reported Physical Exam - Vital signs Vitals: Temp Pulse Resp BP Pulse Ox 97.6 F 94 18 118/68 92 11/01/19 00:11 11/01/19 00:11 11/01/19 00:11 11/01/19 00:11 11/01/19 00:11 - Notes Notes: GENERAL: Alert, interacts well. No acute distress. HEAD: Normocephalic, atraumatic. EYES: Pupils equal, round, and reactive to light. Extraocular movements intact. ENT: Oral mucosa moist, tongue midline. Oropharynx unremarkable. Airway patent. LUNGS: Clear to auscultation bilaterally, no wheezes, rales, or rhonchi. No respiratory distress. HEART: Regular rate and rhythm. No murmur ABDOMEN: Soft, non-tender. Non-distended. Bowel sounds present in all 4 quadrants. GENITOURINARY: Deferred EXTREMITIES: There is tenderness over the right calf and generally and proximally up to the back of the knee. There is no firmness, severe tenderness, erythema, ecchymosis. Range of motion at the knee is normal. Equal minimal edema in both lower extremities. Normal distal neurovascular exam. Unremarkable otherwise. BACK: no cervical, thoracic, lumbar midline tenderness. No saddle anesthesia, normal distal neurovascular exam. NEUROLOGICAL: Alert and oriented x3. Normal speech. Cranial nerves II through XII grossly intact. PSYCH: Normal affect, normal mood. SKIN: Warm, dry, normal turgor. No rashes or lesions noted. Course - Re-evaluation Re-evalutation: Patient has some tenderness over the right calf and behind the right knee but the knee joint itself is normal, she has mild swelling in both lower extremities equally, there is no erythema or significant tenderness, she has no fever, patient is smiling, well-appearing, has no signs of distress. Vital signs unr emarkable. Patient has not had a recent insult to cause a clot, however she continues to smoke and does have a history of DVT. I discussed options with patient. Unfortunately we do not have Doppler ultrasound available tonight and will not until the morning which is quite a few hours from now. After discussing options decision was made to treat patient with a dose of Lovenox and she will have the ultrasound Doppler performed in the morning, she was provided a prescription for this, discussed details, expectations, follow-up, return precautions. Patient states satisfaction and agreement with plan. Stable at time of discharge. - Vital Signs Vital signs: Temp Pulse Resp BP Pulse Ox 97.7 F 92 16 109/43 L 96 11/01/19 04:31 11/01/19 04:11/01/19 04:31 11/01/19 04:11/01/19 04:31 Discharge - Discharge Clinical Impression: Right calf pain Condition: Stable Disposition: HOME, SELF-CARE Additional Instructions: Please call the listed number and bring your form to have your venous Doppler ultrasound of the right lower extremity performed. Return for any concerning symptoms including developing chest pain, shortness of breath, passing out, severe worsening swelling of the leg, or any other concerning symptoms. Forms: Follow-Up Outpatient Testing Referrals: JAREN SHARMA MD [Primary Care Provider] - Follow up as needed
[2019-11-01 05:26] VITALS: BP 109/43
== END 2019-11-01 05:15 | disposition home or self-care (01) ==
LOC: ER 23:52
DX: M79.661 Pain in right lower leg (principal); R60.0 Localized edema; J44.9 Chronic obstructive pulmonary disease, unspecified; F17.200 Nicotine dependence, unspecified, uncomplicated; Z86.718 Personal history of other venous thrombosis and embolism; Z88.2 Allergy status to sulfonamides
CPT/HCPCS: J1170; J1650; 96372; 99283

== ENCOUNTER → 2019-11-01 | Outpatient (CLI) | payer MEDICARE, OTHER ==
--- NOTE | 2019-11-01 12:04 | XCELERA REPORT ---
[address] [place] [facility] [address] Lower Extremity Venous Evaluation Procedure: Color flow and duplex imaging of the veins of the right lower extremity as well as the left Common Femoral vein. Right Sided Venous Evaluation Normal vessel filling wall to wall, compression and augmentation as well as Colour flow down to the infrageniculate veins. Left Sided Venous Evaluation The left common femoral vein is fully compressible. Spontaneous and phasic flow is present in the left common femoral vein. Interpretation Summary No duplex evidence of DVT or obstruction in the right lower extremity nor in the left Common Femoral vein. Name: STEVEN RICE Age: 59 yrs Gender: Female : 1960 Patient Status: Outpatient Patient Location: Study Date: 11/01/2019 09:58 AM Reason For Study: PAIN Ordering Physician: BLAIRE ZHOU Performed By: Madeline Gracia : BLAIRE ZHOU > Ronaldo Flores
== END ==
LOC: SP 08:49
DX: M79.604 Pain in right leg (principal)
CPT/HCPCS: 93971

== ENCOUNTER 2020-06-07 07:30 | Inpatient (IN) | payer MEDICARE, OTHER ==
--- NOTE | 2020-06-07 08:21 | RADIOLOGY REPORT (SQ) ---
EXAM DESCRIPTION: CHEST SINGLE VIEW IMAGES COMPLETED DATE/TIME: 06/07/2020 7:58 am REASON FOR STUDY: shortness of breath COMPARISON: Chest radiograph 04/28/2017 NUMBER OF VIEWS: One view. TECHNIQUE: Single frontal radiographic view of the chest acquired. LIMITATIONS: None. FINDINGS: LUNGS AND PLEURA: Low lung volumes with resultant bronchovascular crowding. Mild patchy a irspace opacities at the lung bases are noted. No pleural effusion. No pneumothorax. MEDIASTINUM AND HILAR STRUCTURES: No masses. Contour normal. HEART AND VASCULAR STRUCTURES: Heart normal in size. Normal vasculature. BONES: No acute findings. HARDWARE: None in the chest. OTHER: No other significant finding. IMPRESSION: Hypoventilated exam with mild patchy airspace opacities at the lung bases which may repr esent atelectasis or infection. Recommend radiographic follow-up. TECHNICAL DOCUMENTATION: JOB ID: [id number] [employer]- All Rights Reserved Reading location - IP/workstation name: [email or web address]
[2020-06-07 08:31] LABS: ABSOLUTE LYMPHOCYTES (AUTO) 1.2 10^3/uL (0.5-4.7); ABSOLUTE MONOCYTES (AUTO) 1.1 10^3/uL (0.1-1.4); BASOPHILS % (AUTO) 0.1 % (0-2); EOSINOPHILS % (AUTO) 0.1 % (0-6); HEMATOCRIT 42.6 % (36.0-47.0); HEMOGLOBIN 14.5 g/dL (12.0-15.5); LYMPHOCYTES % (AUTO) 7.5 % (13-45); MEAN CORPUSCULAR HEMOGLOBIN 31.3 pg (27.0-33.4); MEAN CORPUSCULAR HGB CONC 34.1 g/dL (32.0-36.0); MEAN CORPUSCULAR VOLUME 92 fl (80-97); MONOCYTES % (AUTO) 6.9 % (3-13); PLATELET COUNT 198 10^3/uL (150-450); RED BLOOD COUNT 4.64 10^6/uL (3.72-5.28); RED CELL DISTRIBUTION WIDTH 14.1 % (11.5-14.0); SEGMENTED NEUTROPHILS % (AUTO) 85.4 % (42-78); TOTAL CELLS COUNTED % (AUTO) 100 %; WHITE BLOOD COUNT 16.3 10^3/uL (4.0-10.5)
[2020-06-07] MEDS ORDERED: NORMAL SALINE 500 ML IV ONE (08:33)
[2020-06-07] MEDS ORDERED: NORMAL SALINE 1000 ML 1,000 ML IV ONE ×2 (08:40→19:00)
[2020-06-07 08:47] LABS: ALBUMIN 4.1 g/dL (3.5-5.0); ALKALINE PHOSPHATASE 108 U/L (38-126); ANION GAP 9 (5-19); ASPARTATE AMINO TRANSFERASE 21 U/L (14-36); BILIRUBIN,DIRECT 0.3 mg/dL (0.0-0.4); BILIRUBIN,TOTAL 0.7 mg/dL (0.2-1.3); BLOOD UREA NITROGEN 11 mg/dL (7-20); CALCIUM 9.2 mg/dL (8.4-10.2); CARBON DIOXIDE 25 mmol/L (22-30); CHLORIDE 104 mmol/L (98-107); GLUCOSE 123 mg/dL (75-110); POTASSIUM 4.1 mmol/L (3.6-5.0); TOTAL PROTEIN 6.5 g/dL (6.3-8.2)
[2020-06-07] MEDS ORDERED: CEFEPIME 2 GM/D5W RTU 2 GM/50 ML RTUPB IV ONE (09:15)
[2020-06-07] MEDS ORDERED: VANCOMYCIN HCL INJ 1000 MG VIAL IV ONE (09:16)
[2020-06-07] MEDS ORDERED: ALBUTEROL SULFATE 0.083% NEB 2.5 MG/3 ML AMPUL NEB ONE (09:17)
--- NOTE | 2020-06-07 10:01 | ER Document Report ---
Entered by DESMOND LEDBETTER SCRIBE 06/07/20 0811 Acting as scribe for:PINKY CLARK MD ED Respiratory Problem - General Chief Complaint: Shortness Of Breath Stated Complaint: DIFFICULTY BREATHING Primary Care Provider: JAREN SHARMA MD [Primary Care Provider] - Follow up as needed Mode of Arrival: Wheelchair Information source: Patient Notes: This 60 year old female patient with a history of COPD on 2L O2 home O2 PRN and tobacco use presents to the ED today with complaints of shortness of breath and nonproductive cough that started yesterday. Patient reports associated right- sided chest tightness which she states feels similar to a right pneumothorax she had in 2007. She mentions that she has an inhaler, nebulizer, and Trelegy at home. Denies fever, chills, nausea/vomiting/diarrhea, sore throat, runny nose, or headache. TRAVEL OUTSIDE OF THE [place] IN LAST 30 DAYS: No - Related Data Allergies/Adverse Reactions: Sulfa (Sulfonamide Antibiotics) Allergy (Verified 11/01/19 00:31) Home Medications: Ariprizole, Wellbutrin, Buspar, Cetirizine, Naproxen, Prava statin, Sertraline, Xanax Past Medical History - General Information source: Patient, [facility] Records - Social History Smoking Status: Current Every Day Smoker Smoking Education Provided: No Family History: Reviewed & Not Pertinent Patient has suicidal ideation: No Patient has homicidal ideation: No - Past Medical History Cardiac Medical History: Reports: Hx DVT, Hx Hypercholesterolemia Pulmonary Medical History: Reports: Hx COPD Neurological Medical History: Reports: Hx Migraine - Hemiplegic migraine Psychiatric Medical History: Reports: Hx Depression Past Surgical History: Reports: Hx Section - Immunizations Immunizations up to date: Yes Hx Diphtheria, Pertussis, Tetanus Vaccination: Yes Review of Systems - Review of Systems Constitutional: See HPI. denies: Chills, Fever EENT: See HPI. denies: Nose discharge, Throat pain Cardiovascular: See HPI, Chest pain Respiratory: See HPI, Cough, Short of breath. denies: Sputum Gastrointestinal: See HPI. denies: Diarrhea, Nausea, Vomiting Genitourinary: No symptoms reported Female Genitourinary: No symptoms reported Musculoskeletal: No symptoms reported Skin: No symptoms reported Hematologic/Lymphatic: No symptoms reported Neurological/Psychological: See HPI. denies: Headaches -: Yes All other systems reviewed and negative Physical Exam - Vital signs Vitals: Temp Pulse BP Pulse Ox 99.6 F 117 H 104/56 L 83 L 06/07/20 07:40 06/07/20 07:40 06/07/20 07:40 06/07/20 07:40 - General General appearance: Alert In distress: None - HEENT Head: Normocephalic, Atraumatic Eyes: Normal Extraocular movements intact: Yes Pupils: PERRL Pharynx: Erythema, Other - Tonsils are surgically absent. No: Exudate - Respiratory Respiratory status: Other - Patient was hypoxic with O2 sats in the 80s. She was placed on supplemental O2 which increased sats to the 90s. Chest status: Nontender Breath sounds: Decreased air movement - Diminished breath sounds in the bases, right worse than left, Nonproductive cough - Intractible. No: Wheezing Chest palpation: Normal - Cardiovascular Rhythm: Regular, Tachycardia Heart sounds: Normal auscultation, S1 appreciated, S2 appreciated Murmur: No Friction rub: No Gallop: None auscultated - Abdominal Inspection: Normal Distension: No distension Bowel sounds: Normal Tenderness: Nontender - Abdomen soft Organomegaly: No organomegaly - Back Back: Normal, Nontender - Extremities General upper extremity: Normal inspection General lower extremity: Normal inspection. No: Edema - Neurological Neuro grossly intact: Yes Orientation: AAOx4 [place] Coma Scale Eye Opening: Spontaneous [place] Coma Scale Verbal: Oriented [place] Coma Scale Motor: Obeys Commands [place] Coma Scale Total: 15 - Psychological Associated symptoms: Normal affect, Normal mood - Skin Skin Temperature: Warm Skin Moisture: Dry Skin Color: Normal Course - Re-evaluation Re-evalutation: 06/07/20 12:55 Patient resting comfortably at this time patient is on 3-1/2 L nasal O2 no coughing at this time. - Vital Signs Vital signs: Temp Pulse Resp BP Pulse Ox 99.6 F 117 H 22 H 128/88 H 100 06/07/20 07:40 06/07/20 07:40 06/07/20 12:01 06/07/20 12:00 06/07/20 11:11 06/07/20 12:56 Vital signs as above respiratory rate 22 pulse oximetry 100% - Laboratory Result Diagrams: 06/07/20 08:11 06/07/20 08:11 Laboratory results interpreted by me: 06/07/20 06/07/20 06/07/20 08:11 08:11 08:22 WBC 16.3 H RDW 14.1 H Lymph % (Auto) 7.5 L Absolute Neuts (auto) 14.0 H Seg Neutrophils % 85.4 H APTT Glucose 123 H POC Glucose 122 H 06/07/20 10:23 WBC RDW Lymph % (Auto) Absolute Neuts (auto) Seg Neutrophils % APTT 36.4 H Glucose POC Glucose Elevated white blood cell count of 16.3 otherwise unremarkable labs except for glucose of 123. - Diagnostic Test Radiology reviewed: Image reviewed, Reports reviewed Radiology results interpreted by me: 06/07/20 08:33 Chest X-Ray 06/07/20 07:42 IMPRESSION: Hypoventilated exam with mild patchy airspace opacities at the lung bases which may represent atelectasis or infection. Recommend radiographic follow-up. 06/07/20 09:14 Chest x-ray shows poor inspiration and infiltrates versus atelectasis in the bases left greater than right. Chest X-Ray 06/07/20 07:42 IMPRESSION: Hypoventilated exam with mild patchy airspace opacities at the lung bases which may represent atelectasis or infection. Recommend radiographic follow-up. Chest/Abdomen CTA 06/07/20 09:18 IMPRESSION: 1. No PE. 2. Bilateral pneumonia. CT scan of chest with CT angiogram shows no pulmonary emboli and bilateral pneumonia. - EKG Interpretation by Me Additional EKG results interpreted by me: 06/07/20 09:15 Twelve-lead EKG shows sinus tachycardia rate of [address]-T wave changes in the lateral leads axis normal intervals DC QRS and QT within normal limits no acute ST elevations to suggest MO. - Consults Isadora (Hospitalist) Time consulted: 12:23 Reason for consultation: 06/07/20 12:24 Bilateral PNA, hypoxia Consulted provider: will see as inpatient Discharge - Discharge Clinical Impression: Bilateral pneumonia, COPD (chronic obstructive pulmonary disease), Suspected COVID-19 virus infection, Hypoxia Condition: Stable Disposition: ADMITTED INPATIENT Admitting Provider: aashish Muir Unit Admitted: [facility]U Referrals: JAREN SHARMA MD [Primary Care Provider] - Follow up as needed I personally performed the services described in the documentation, reviewed and edited the documentation which was dictated to the scribe in my presence, and it accurately records my words and actions.
[2020-06-07 11:25] LABS: INTERNATIONAL RATION (INR) 1.05; PROTHROMBIN TIME 13.9 SEC (11.4-15.4)
[2020-06-07 11:26] LABS: PARTIAL THROMBOPLASTIN TIME 36.4 SEC (23.5-35.8)
[2020-06-07 11:28] LABS: D-DIMER 0.48 ug/mL (0.00-0.50)
--- NOTE | 2020-06-07 11:46 | RADIOLOGY REPORT (SQ) ---
EXAM DESCRIPTION: CTA CHEST IMAGES COMPLETED DATE/TIME: 06/07/2020 11:20 am REASON FOR STUDY: sobr/right chest pain/sinus tach COMPARISON: None. TECHNIQUE: CT scan of the chest performed using helical scanning technique with dynamic intravenous contrast injection. Images reviewed with lung, soft tissue and bone windows. Reconstructed coronal and sagittal MPR images reviewed. Additional 3 dimensional post-processing performed to develop Maximal Intensity Projection images (ND P). All images stored on PACS. All CT scanners at this facility use dose modulation, iterative reconstruction, and/or weight based d osing when appropriate to reduce radiation dose to as low as reasonably achievable (ALARA). [facility]: Dose Right [facility]: CareDose [facility]: Dose Right [facility]: Teradose 4D [facility]: CreaWor CONTRAST TYPE AND DOSE: contrast/concentration: Isovue 350.00 mmol/ml; Total Contrast Delivered: 55. 0 ml; Total Saline Delivered: 77.0 ml RENAL FUNCTION: GFR > 60. RADIATION DOSE: CT Rad equipment meets quality standard of care and radiation dose reduction techniq ues were employed. CTDIvol: 6.6 - 14.3 mGy. DLP: 448 mGy-cm. . LIMITATIONS: None. FINDINGS: LUNGS AND PLEURA: Mild -moderate emphysema. Segmental consolidation in the right upper lo be and in the posterior inferior lower lobes bilaterally. Trace pleural effusions. AORTA AND GREAT VESSELS: No aneurysm. No dissection. HEART: No pericardial effusion. PULMONARY ARTERIES: No emboli visualized in the main pulmonary arteries or the segmental branches. HILAR AND MEDIASTINAL STRUCTURES: No identified masses or abnormal nodes. HARDWARE: None in the chest. UPPER ABDOMEN: No significant findings. Limited exam. THYROID AND OTHER SOFT TISSUES: No masses. No adenopathy. BONES: No acute or significant finding. 3D MIPS: Confirm above findings. OTHER: No other significant finding. IMPRESSION: 1. No PE. 2. Bilateral pneumonia. COMMENT: Quality ID # [id number]: Final reports with documentation of one or more dose reduction techniques (e.g., Automated exposure control, adjustment of the mA and/or kV according to patient size, use of iterative reconstruction technique) TECHNICAL DOCUMENTATION: JOB ID: [id number] 2010 [employer]- All Rights Reserved Reading location - IP/workstation name: [email or web address]
[2020-06-07 12:02] LABS: NT PRO BNP 111 pg/mL (<125)
[2020-06-07 12:07] LABS: TROPONIN I < 0.012 ng/mL
[2020-06-07 12:22] LABS: APPEARANCE,URINE CLEAR; BILIRUBIN,URINE NEGATIVE (NEGATIVE); COLOR,URINE YELLOW; GLUCOSE, URINE NEGATIVE (NEGATIVE); KETONES,URINE NEGATIVE (NEGATIVE); LEUKOCYTE ESTERASE,URINE NEGATIVE (NEGATIVE); NITRITE,URINE NEGATIVE (NEGATIVE); PROTEIN,URINE NEGATIVE (NEGATIVE); URINE SPECIFIC GRAVITY 1.042; UROBILINOGEN,URINE NEGATIVE mg/dL (<2.0)
[2020-06-07 14:59] LABS: A TYPE INFLUENZA AG NEGATIVE (NEGATIVE); B INFLUENZA AG NEGATIVE (NEGATIVE)
[2020-06-07] MEDS ORDERED: MAG HYDROX/AL HYDROX/SIMETH SUSP 30 ML UDCUP PO PRN (15:19)
[2020-06-07] MEDS ORDERED: ONDANSETRON HCL INJ/PF 4 MG/2 ML SDV IV PRN (15:19)
[2020-06-07] MEDS: IPRATROPIUM/ALBUTEROL 0.5-2.5 MG/3 ML AMPUL NEB SCH ×2 (16:23→20:15)
[2020-06-07] MEDS ORDERED: ALPRAZOLAM 0.5 MG TABLET PO PRN (17:46)
[2020-06-07] MEDS ORDERED: OXYCODONE HCL IR 5 MG TABLET PO PRN (17:46)
[2020-06-07] MEDS ORDERED: ALBUTEROL SULFATE HFA (90 MCG/PUFF) 8 GM MDI IH PRN (17:46)
[2020-06-07] MEDS ORDERED: GUAIFENESIN SYRP 200 MG/10 ML UDC PO PRN (17:55)
[2020-06-07] MEDS ORDERED: BENZONATATE 100 MG CAPSULE PO PRN (17:56)
[2020-06-07] MEDS ORDERED: NORMAL SALINE 1000 ML 1,000 ML IV PRN (17:58)
[2020-06-07] MEDS ORDERED: AZITHROMYCIN INJ 500 MG VIAL IV PRN (18:00)
--- NOTE | 2020-06-07 18:17 | PDOC H&P ---
History of Present Illness Admission Date/PCP: 06/07/20 15:17 JAREN SHARMA MD Patient complains of: SOB, cough History of Present Illness: STEVEN RICE is a 60 year old female current 1.5 PPD smoker with past medical history of COPD not on home oxygen who presents to the ED with chief complaint of increasing cough and shortness of breath x2 days. She reports having severe right-sided chest pain which she states feels similar to a right pneumothorax which she had in 2007. She mentions that she has an inhaler, nebulizer, and Trelegy at home and takes all medications as prescribed. Denies fever, chills, nausea/vomiting/diarrhea, sore throat, runny nose, or headache. 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 Past Medical History Cardiac Medical History: Reports: DVT, Hyperlipidema Denies: Congestive Heart Failure Pulmonary Medical History: Reports: Chronic Obstructive Pulmonary Disease (COPD) Neurological Medical History: Reports: Migraine - Hemiplegic migraine Endocrine Medical History: Reports: None Musculoskeltal Medical History: Reports: Other - chronic pain on chronic opioid therapy Psychiatric Medical History: Reports: Depression Past Surgical History Past Surgical History: Reports: Section Social History Smoking Status: Current Every Day Smoker Family History Family History: Reviewed & Not Pertinent Parental Family History Reviewed: Yes Children Family History Reviewed: Yes Sibling(s) Family History Reviewed.: Yes Medication/Allergy Home Medications: Aripiprazole [Abilify 2 mg Tablet] 2 mg PO DAILY 08/12/13 Ciprofloxacin HCl [Cipro 500 mg Tablet] 500 mg PO BID 08/12/13 Citalopram Hydrobromide [Celexa 40 mg Tablet] 40 mg PO QHS 08/12/13 Cyclobenzaprine HCl [Flexeril 10 Mg Tablet] 10 mg PO BID #10 tablet 08/12/13 Cyclobenzaprine HCl [Flexeril 10 Mg Tablet] 10 mg PO QID 08/12/13 Divalproex Sodium [Depakote Er 250 Mg Tablet] 250 mg PO QHS 08/12/13 Esomeprazole Magnesium [Nexium] 40 mg PO DAILY 08/12/13 Guaifen/P-Ephed HCl/Dihy-Cod [[place]-Tussin Exp Syrup] 1 tsp PO QID 08/12/13 Loratadine [Claritin 10 mg Tablet] 10 mg PO DAILY 08/12/13 Naproxen 500 mg PO BID #10 tablet 08/12/13 Simvastatin [Zocor 40 mg Tablet] 40 mg PO DAILY 08/12/13 Temazepam [Restoril] 22.5 mg PO QHS 08/12/13 Oxycodone HCl [Oxycontin Ir 5 Mg Tablet] 1 - 2 mg PO Q4H PRN #25 tablet 08/17/13 Levalbuterol HCl [Xopenex] 0.63 mg IH Q4HP PRN #30 ml 09/07/14 Levalbuterol Tartrate [Xopenex Hfa] 15 gm IH Q4HP PRN #1 hfa.aer.ad 09/07/14 Prednisone [Deltasone 20 mg Tablet] 2 tab PO DAILY 4 Days tablet 09/07/14 Oxycodone HCl [Oxycontin Ir 5 Mg Tablet] 15 mg PO Q8 #27 tablet 10/24/14 Prednisone [Deltasone 10 mg Tablet] 10 mg PO ASDIR PRN #21 tablet 04/29/17 Allergies/Adverse Reactions: Sulfa (Sulfonamide Antibiotics) Allergy (Verified 11/01/19 00:31) Review of Systems Constitutional: PRESENT: fatigue Respiratory: PRESENT: cough, dyspnea. ABSENT: sputum Gastrointestinal: ABSENT: abdominal pain, vomiting Genitourinary: ABSENT: dysuria Integumentary: ABSENT: diaphoresis Neurological: ABSENT: dizziness Physical Exam Vital Signs: Temp Pulse Resp BP Pulse Ox 99.7 F 117 H 27 H 110/70 94 06/07/20 14:23 06/07/20 07:40 06/07/20 15:01 06/07/20 15:01 06/07/20 14:01 Intake & Output 06/06/20 06/07/20 06/08/20 06:59 06:59 06:59 Intake Total 300 Balance 300 Weight 71.668 kg General appearance: PRESENT: no acute distress Eye exam: ABSENT: scleral icterus Mouth exam: PRESENT: dry mucosa Throat exam: ABSENT: tonsillar erythema, tonsillar exudate Neck exam: PRESENT: lymphadenopathy. ABSENT: JVD Respiratory exam: PRESENT: decreased breath sounds, tachypnea, wheezes. ABSENT: accessory muscle use, rhonchi, stridor Cardiovascular exam: PRESENT: tachycardia Pulses: PRESENT: +2 pedal pulses bilateral GI/Abdominal exam: PRESENT: normal bowel sounds, soft. ABSENT: tenderness Extremities exam: ABSENT: tenderness, +1 edema Neurological exam: PRESENT: alert, awake, oriented to person, oriented to place, oriented to time, oriented to situation Psychiatric exam: PRESENT: appropriate affect Skin exam: ABSENT: rash Results Laboratory Results: 06/07/20 08:11 06/07/20 08:11 06/07/20 06/07/20 06/07/20 08:11 08:11 08:11 WBC 16.3 H RBC 4.64 Hgb 14.5 Hct 42.6 MCV 92 MCH 31.3 MCHC 34.1 RDW 14.1 H Plt Count 198 Seg Neutrophils % 85.4 H Sodium 138.3 Potassium 4.1 Chloride 104 Carbon Dioxide 25 Anion Gap 9 BUN 11 Creatinine 0.71 Est GFR ( Amer) > 60 Glucose 123 H Lactic Acid 2.0 Calcium 9.2 Total Bilirubin 0.7 AST 21 Alkaline Phosphatase 108 Total Protein 6.5 Albumin 4.1 Lipase Urine Color Urine Appearance Urine pH Ur Specific [place] Urine Protein Urine Glucose (UA) Urine Ketones Urine Blood Urine Nitrite Ur Leukocyte Esterase Urine WBC (Auto) Urine RBC (Auto) 06/07/20 06/07/20 08:11 11:48 WBC RBC Hgb Hct MCV MCH MCHC RDW Plt Count Seg Neutrophils % Sodium Potassium Chloride Carbon Dioxide Anion Gap BUN Creatinine Est GFR ( Amer) Glucose Lactic Acid Calcium Total Bilirubin AST Alkaline Phosphatase Total Protein Albumin Lipase 27.9 Urine Color YELLOW Urine Appearance CLEAR Urine pH 7.0 Ur Specific [place] 1.042 Urine Protein NEGATIVE Urine Glucose (UA) NEGATIVE Urine Ketones NEGATIVE Urine Blood NEGATIVE Urine Nitrite NEGATIVE Ur Leukocyte Esterase NEGATIVE Urine WBC (Auto) 0 Urine RBC (Auto) 2 06/07/20 06/07/20 08:11 08:11 Creatine Kinase 119 Troponin I < 0.012 NT-Pro-B Natriuret Pep 111 Impressions: Chest X-Ray 06/07/20 07:42 IMPRESSION: Hypoventilated exam with mild patchy airspace opacities at the lung bases which may represent atelectasis or infection. Recommend radiographic follow-up. Chest/Abdomen CTA 06/07/20 09:18 IMPRESSION: 1. No PE. 2. Bilateral pneumonia. Assessment and Plan - Diagnosis (1) Acute hypoxemic respiratory failure Is this a current diagnosis for this admission?: Yes (2) Community acquired pneumonia Is this a current diagnosis for this admission?: Yes (3) COPD (chronic obstructive pulmonary disease) Qualifiers: COPD type: COPD with acute exacerbation Qualified Code(s): J44.1 - Chronic obstructive pulmonary disease with (acute) exacerbation Is this a current diagnosis for this admission?: Yes (4) Suspected COVID-19 virus infection Is this a current diagnosis for this admission?: Yes - Plan Summary Summary: STEVEN RICE is a 60 year old female current 1.5 PPD smoker with past medical history of COPD not on home oxygen who presents to the ED with chief complaint of increasing cough and shortness of breath x2 days. She reports having severe right-sided chest pain which she states feels similar to a right pneumothorax which she had in 2008. She mentions that she has an inhaler, nebulizer, and Trelegy at home and takes all medications as prescribed. Denies fever, chills, nausea/vomiting/diarrhea, sore throat, runny nose, or headache. 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 In the ED, she was found to have acute hypoxemic respiratory failure. CTA of her chest was notable for bilateral pneumonia, no evidence of pneumothorax and negative for PE. She has been started on treatment for community-acquired pneumonia with ceftriaxone and azithromycin. She will also be treated for possible COPD exacerbation with steroids and DuoNeb treatments. Due to suspicion for possible COVID-19 infection, she will be tested and placed in IMCU under dr sterling precautions. Supplemental O2 PRN saturation >88%. Influenza negative. She has tachypnea, sinus tachycardia, and leukocytosis in the s/o infection (3/4 SIRS). Will bolus another 1 L NS and start continuous IVF at 100 ml/hr. Continuous telemetry. BCx pending. Antibiotics as per above. Restart home medications for treatment of chronic pain. Given her age, high dose Fentanyl/oxycodone dosage, and concomitant benzodiazepine usage, she is at high risk for accidental overdose. She should be discharged with a prescription for Narcan. She should be tapered off of these medication in the long-term by a longitudinal provider. She should be educated on her high risk for falls and other negative outcomes due to these medications. She is an active 1.5 PPD smoker. She was counseled on smoking cessation. She will be treated with nicotine patches while inpatient. Refer to [id number] upon discharge. DVT ppx: Lovenox Code Status: FULL CODE - Time Time Spent with patient: 35 or more minutes Anticipated Discharge Disposition: Home, Self Care Anticipated Discharge Timeframe: within 48 hours
[2020-06-07] MEDS ORDERED: AZITHROMYCIN 500 MG in DEXTROSE 5%-WATER 250 ML IV ONE (19:00)
[2020-06-07] MEDS ORDERED: AZITHROMYCIN INJ 500 MG VIAL IV ONE (21:07)
[2020-06-07] MEDS: ACETAMINOPHEN 325 MG TABLET PO PRN (21:46)
[2020-06-07] MEDS: GUAIFENESIN 600 MG TABLET.SA PO SCH (21:50)
[2020-06-07] MEDS: ROPINIROLE HCL 0.25 MG TABLET PO SCH (21:50)
[2020-06-07] MEDS: ATORVASTATIN CALCIUM 10 MG TABLET PO SCH (21:51)
[2020-06-07] MEDS: BUPROPION HCL 100 MG TABLET PO SCH (21:51)
[2020-06-07] MEDS: PREGABALIN 100 MG CAPSULE PO SCH (21:51)
[2020-06-07] MEDS: MONTELUKAST SODIUM 10 MG TABLET PO SCH (21:51)
[2020-06-07] MEDS: ZOLPIDEM TARTRATE 5 MG TABLET PO SCH (21:51)
[2020-06-07] MEDS: BUSPIRONE HCL 10 MG TABLET PO SCH (21:51)
[2020-06-07] MEDS: LORATADINE 10 MG TABLET PO SCH (21:51)
[2020-06-08] MEDS: IPRATROPIUM/ALBUTEROL 0.5-2.5 MG/3 ML AMPUL NEB SCH ×4 (00:41→11:35)
--- NOTE | 2020-06-08 02:36 | EKG REPORT ---
SEVERITY:- OTHERWISE NORMAL ECG - SINUS TACHYCARDIA : Confirmed by: Carlos Sanchez MD 08-Jun-2020 02:35:22
--- NOTE | 2020-06-08 02:36 | EKG REPORT ---
SEVERITY:- ABNORMAL ECG - SINUS TACHYCARDIA NONSPECIFIC T ABNORMALITIES, LATERAL LEADS : Confirmed by: Carlos Sanchez MD 08-Jun-2020 02:35:28
[2020-06-08] MEDS: ROPINIROLE HCL 0.25 MG TABLET PO SCH ×3 (05:20→21:49)
[2020-06-08] MEDS: PANTOPRAZOLE SODIUM 40 MG TABLET.DR PO SCH (05:20)
[2020-06-08] MEDS: BUPROPION HCL 100 MG TABLET PO SCH ×3 (05:20→21:50)
[2020-06-08 09:27] LABS: HEMATOCRIT 39.1 % (36.0-47.0); HEMOGLOBIN 13.3 g/dL (12.0-15.5); MEAN CORPUSCULAR HGB CONC 33.8 g/dL (32.0-36.0); MEAN CORPUSCULAR VOLUME 92 fl (80-97); PLATELET COUNT 180 10^3/uL (150-450); RED BLOOD COUNT 4.27 10^6/uL (3.72-5.28); WHITE BLOOD COUNT 16.3 10^3/uL (4.0-10.5)
[2020-06-08 09:42] LABS: ALBUMIN 3.1 g/dL (3.5-5.0); ALKALINE PHOSPHATASE 94 U/L (38-126); ASPARTATE AMINO TRANSFERASE 24 U/L (14-36); BILIRUBIN,DIRECT 0.3 mg/dL (0.0-0.4); BILIRUBIN,TOTAL 0.8 mg/dL (0.2-1.3); BLOOD UREA NITROGEN 9 mg/dL (7-20); CALCIUM 8.1 mg/dL (8.4-10.2); CHOLESTEROL 147.85 mg/dL (0-200); GLUCOSE 96 mg/dL (75-110); POTASSIUM 3.8 mmol/L (3.6-5.0); TOTAL PROTEIN 5.4 g/dL (6.3-8.2); TRIGLYCERIDES 105 mg/dL (<150)
[2020-06-08 09:47] LABS: ANION GAP 5 (5-19); CARBON DIOXIDE 20 mmol/L (22-30); CHLORIDE 111 mmol/L (98-107)
[2020-06-08 09:52] LABS: ABSOLUTE LYMPHOCYTES# (MANUAL) 1.5 10^3/uL (0.5-4.7); ABSOLUTE MONOCYTES # (MANUAL) 0.8 10^3/uL (0.1-1.4); BAND NEUTROPHILS % (MANUAL) 2 % (3-5); BASOPHILS % (MANUAL) 0 % (0-2); EOSINOPHILS % (MANUAL) 0 % (0-6); LYMPHOCYTES % (MANUAL) 7 % (13-45); MONOCYTES % (MANUAL) 5 % (3-13); SEGMENTED NEUTROPHILS % (MAN) 84 % (42-78); TOTAL CELLS COUNTED 100
[2020-06-08 09:53] LABS: ANISOCYTOSIS SLIGHT; DIRECT LDL 72 mg/dL (<100); PLATELET COMMENT ADEQUATE; POLYCHROMASIA SLIGHT
[2020-06-08] MEDS ORDERED: ONDANSETRON HCL INJ/PF 4 MG/2 ML SDV IV PRN (11:00)
[2020-06-08] MEDS: CEFTRIAXONE 1 GM/D5W RTU 1 GM/50 ML RTUPB IV SCH (11:20)
[2020-06-08] MEDS: BUSPIRONE HCL 10 MG TABLET PO SCH ×2 (11:23→21:49)
[2020-06-08] MEDS: AZITHROMYCIN 250 MG TABLET PO SCH (11:23)
[2020-06-08] MEDS: GUAIFENESIN 600 MG TABLET.SA PO SCH ×2 (11:23→21:49)
[2020-06-08] MEDS: PREDNISONE 20 MG TABLET PO SCH (11:24)
[2020-06-08] MEDS: SERTRALINE HCL 50 MG TABLET PO SCH (11:24)
[2020-06-08] MEDS: ACETAMINOPHEN 325 MG TABLET PO PRN (11:25)
[2020-06-08] MEDS: PREGABALIN 100 MG CAPSULE PO SCH ×2 (11:25→21:49)
[2020-06-08] MEDS: NAPROXEN 250 MG TABLET PO SCH ×2 (11:25→18:40)
[2020-06-08] MEDS: ENOXAPARIN SODIUM INJ 40 MG/0.4 ML DISP.SYRIN SUBCUT SCH (11:27)
[2020-06-08] MEDS: NICOTINE 21 MG/24 HR PATCH.TD24 TD SCH (11:35)
[2020-06-08] MEDS ORDERED: IPRATROPIUM/ALBUTEROL 0.5-2.5 MG/3 ML AMPUL NEB PRN (13:02)
--- NOTE | 2020-06-08 14:03 | PDOC PROGRESS REPORT ---
Subjective Progress Note for:: 06/08/20 Subjective:: She has a headache due to caffeine withdrawal. She feels that her breathing has improved since yesterday. She has had loose stools x2. Reason For Visit: COPD EXACERBATION,COMMUNITY ACQUIRED PNEUMONIA Physical Exam Vital Signs: Temp Pulse Resp BP Pulse Ox 98.5 F 112 H 18 116/56 L 96 06/08/20 08:43 06/08/20 11:35 06/08/20 11:35 06/08/20 08:43 06/08/20 13:08 Intake & Output 06/07/20 06/08/20 06/09/20 06:59 06:59 06:59 Intake Total 2059 Balance 2059 Weight 74.2 kg General appearance: PRESENT: no acute distress Neck exam: ABSENT: JVD Respiratory exam: PRESENT: prolonged expiratory phas, tachypnea, wheezes. ABSENT: crackles Cardiovascular exam: PRESENT: tachycardia GI/Abdominal exam: PRESENT: normal bowel sounds, soft. ABSENT: distended, guarding, tenderness Extremities exam: ABSENT: pedal edema Neurological exam: PRESENT: alert, awake, oriented to person, oriented to place, oriented to time, oriented to situation Results Laboratory Results: 06/08/20 08:20 06/08/20 08:20 06/08/20 06/08/20 08:20 08:20 WBC 16.3 H RBC 4.27 Hgb 13.3 Hct 39.1 MCV 92 MCH 31.0 MCHC 33.8 RDW 14.0 Plt Count 180 Seg Neutrophils % Not Reportable Sodium 136.2 L Potassium 3.8 Chloride 111 H Carbon Dioxide 20 L Anion Gap 5 BUN 9 Creatinine 0.52 Est GFR ( Amer) > 60 Glucose 96 Calcium 8.1 L Magnesium 2.2 Total Bilirubin 0.8 AST 24 Alkaline Phosphatase 94 Total Protein 5.4 L Albumin 3.1 L Triglycerides 105 Cholesterol 147.85 LDL Cholesterol Direct 72 VLDL Cholesterol 21.0 HDL Cholesterol 44 06/07/20 06/07/20 08:11 08:11 Creatine Kinase 119 Troponin I < 0.012 NT-Pro-B Natriuret Pep 111 Impressions: Chest X-Ray 06/07/20 07:42 IMPRESSION: Hypoventilated exam with mild patchy airspace opacities at the lung bases which may represent atelectasis or infection. Recommend radiographic follow-up. Chest/Abdomen CTA 06/07/20 09:18 IMPRESSION: 1. No PE. 2. Bilateral pneumonia. Assessment and Plan - Diagnosis (1) Acute hypoxemic respiratory failure Is this a current diagnosis for this admission?: Yes (2) Community acquired pneumonia Is this a current diagnosis for this admission?: Yes (3) COPD (chronic obstructive pulmonary disease) Qualifiers: COPD type: COPD with acute exacerbation Qualified Code(s): J44.1 - Chronic obstructive pulmonary disease with (acute) exacerbation Is this a current diagnosis for this admission?: Yes (4) Suspected COVID-19 virus infection Is this a current diagnosis for this admission?: Yes - Plan Summary Summary: Mrs. Fuller is a 60 year old current 1.5 PPD smoker with past medical history of COPD on 2L home oxygen who presents to the ED with chief complaint of increasing cough and shortness of breath x2 days. She reports having severe right-sided chest pain which she states feels similar to a right pneumothorax which she had in 2007. She mentions that she has an inhaler, nebulizer, and Trelegy at home and takes all medications as prescribed. Denies fever, chills, nausea/vomiting/diarrhea, sore throat, runny nose, or headache. 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 In the ED, she was found to have acute hypoxemic respiratory failure. CTA of her chest was notable for bilateral pneumonia, no evidence of pneumothorax and negative for PE. She has been started on treatment for community-acquired pn eumonia with ceftriaxone and azithromycin. She will also be treated for possible COPD exacerbation with steroids and DuoNeb treatments. Due to suspicion for possible COVID-19 infection, she will be tested and placed in IMCU under droplet precautions. Supplemental O2 PRN saturation >88%. Influenza negative. Covid pending. Restart home medications for treatment of chronic pain. Given her age, high dose Fentanyl/oxycodone dosage, and concomitant benzodiazepine usage, she is at high risk for accidental overdose. She should be discharged with a prescription for Narcan. She should be tapered off of these medication in the long-term by a longitudinal provider. She should be educated on her high risk for falls and other negative outcomes due to these medications. She is an active 1.5 PPD smoker. She was counseled on smoking cessation. She will be treated with nicotine patches while inpatient. Refer to [id number] upon discharge. DVT ppx: Lovenox Code Status: FULL CODE - Time Time Spent with patient: 35 or more minutes Anticipated Discharge Disposition: Home, Self Care Anticipated Discharge Timeframe: within 48 hours
[2020-06-08] MEDS: ATORVASTATIN CALCIUM 10 MG TABLET PO SCH (21:49)
[2020-06-08] MEDS: ZOLPIDEM TARTRATE 5 MG TABLET PO SCH (21:49)
[2020-06-08] MEDS: MONTELUKAST SODIUM 10 MG TABLET PO SCH (21:49)
[2020-06-08] MEDS: LORATADINE 10 MG TABLET PO SCH (21:50)
[2020-06-08] MEDS ORDERED: FENTANYL 50 MCG/HR PATCH.TD72 TD SCH (22:00)
[2020-06-09] MEDS: PANTOPRAZOLE SODIUM 40 MG TABLET.DR PO SCH (05:32)
[2020-06-09] MEDS: BUPROPION HCL 100 MG TABLET PO SCH ×3 (05:32→21:34)
[2020-06-09] MEDS: ROPINIROLE HCL 0.25 MG TABLET PO SCH ×3 (05:32→21:34)
[2020-06-09 10:15] LABS: ABSOLUTE EOSINOPHILS # (AUTO) 0.1 10^3/uL (0.0-0.6); ABSOLUTE LYMPHOCYTES (AUTO) 0.8 10^3/uL (0.5-4.7); ABSOLUTE MONOCYTES (AUTO) 0.9 10^3/uL (0.1-1.4); MEAN CORPUSCULAR HEMOGLOBIN 31.1 pg (27.0-33.4); TOTAL CELLS COUNTED % (AUTO) 100 %
[2020-06-09 10:27] LABS: ABSOLUTE NEUT (AUTO) 11.8 10^3/uL (1.7-8.2); BASOPHILS % (AUTO) 0.2 % (0-2); HEMATOCRIT 38.9 % (36.0-47.0); HEMOGLOBIN 13.3 g/dL (12.0-15.5); LYMPHOCYTES % (AUTO) 5.6 % (13-45); MEAN CORPUSCULAR HGB CONC 34.3 g/dL (32.0-36.0); MEAN CORPUSCULAR VOLUME 91 fl (80-97); MONOCYTES % (AUTO) 6.5 % (3-13); PLATELET COUNT 187 10^3/uL (150-450); RED BLOOD COUNT 4.28 10^6/uL (3.72-5.28); SEGMENTED NEUTROPHILS % (AUTO) 86.7 % (42-78); WHITE BLOOD COUNT 13.6 10^3/uL (4.0-10.5)
[2020-06-09 10:37] LABS: ANION GAP 7 (5-19); BLOOD UREA NITROGEN 14 mg/dL (7-20); CALCIUM 8.3 mg/dL (8.4-10.2); CARBON DIOXIDE 23 mmol/L (22-30); CHLORIDE 109 mmol/L (98-107); GLUCOSE 111 mg/dL (75-110); POTASSIUM 3.4 mmol/L (3.6-5.0)
[2020-06-09] MEDS: NAPROXEN 250 MG TABLET PO SCH ×2 (11:01→16:31)
[2020-06-09] MEDS: GUAIFENESIN 600 MG TABLET.SA PO SCH ×2 (11:02→21:33)
[2020-06-09] MEDS: SERTRALINE HCL 50 MG TABLET PO SCH (11:03)
[2020-06-09] MEDS: BUSPIRONE HCL 10 MG TABLET PO SCH ×2 (11:04→21:34)
[2020-06-09] MEDS: PREDNISONE 20 MG TABLET PO SCH (11:04)
[2020-06-09] MEDS: AZITHROMYCIN 250 MG TABLET PO SCH (11:05)
[2020-06-09] MEDS: PREGABALIN 100 MG CAPSULE PO SCH ×2 (11:05→21:33)
[2020-06-09] MEDS: ENOXAPARIN SODIUM INJ 40 MG/0.4 ML DISP.SYRIN SUBCUT SCH (11:06)
[2020-06-09] MEDS: CEFTRIAXONE 1 GM/D5W RTU 1 GM/50 ML RTUPB IV SCH (11:07)
[2020-06-09] MEDS: NICOTINE 21 MG/24 HR PATCH.TD24 TD SCH (11:08)
--- NOTE | 2020-06-09 17:21 | PDOC PROGRESS REPORT ---
Subjective Progress Note for:: 06/09/20 Subjective:: She is feeling much improved today. Breathing is better. She remains afebrile. Reason For Visit: COPD EXACERBATION,COMMUNITY ACQUIRED PNEUMONIA Physical Exam Vital Signs: Temp Pulse Resp BP Pulse Ox 98.3 F 110 H 17 106/59 L 95 06/09/20 07:41 06/09/20 14:00 06/09/20 04:35 06/09/20 04:35 06/09/20 04:35 Intake & Output 06/08/20 06/09/20 06/10/20 06:59 06:59 06:59 Intake Total 2059 1520 Balance 2059 1520 Weight 74.2 kg 74.2 kg General appearance: PRESENT: no acute distress Eye exam: ABSENT: scleral icterus Mouth exam: PRESENT: moist Neck exam: ABSENT: JVD Respiratory exam: PRESENT: rhonchi, symmetrical, unlabored Cardiovascular exam: PRESENT: RRR GI/Abdominal exam: PRESENT: normal bowel sounds, soft. ABSENT: tenderness Extremities exam: ABSENT: pedal edema Neurological exam: PRESENT: alert, awake, oriented to person, oriented to place, oriented to time, oriented to situation Psychiatric exam: PRESENT: appropriate affect Results Laboratory Results: 06/09/20 09:30 06/09/20 09:30 06/09/20 06/09/20 09:30 09:30 WBC 13.6 H RBC 4.28 Hgb 13.3 Hct 38.9 MCV 91 MCH 31.1 MCHC 34.3 RDW 14.0 Plt Count 187 Seg Neutrophils % 86.7 H Sodium 139.0 Potassium 3.4 L Chloride 109 H Carbon Dioxide 23 Anion Gap 7 BUN 14 Creatinine 0.53 Est GFR ( Amer) > 60 Glucose 111 H Calcium 8.3 L Magnesium 2.1 06/07/20 08:48 Throat Throat Culture - Final NORMAL PATO 06/07/20 06/07/20 08:11 08:11 Creatine Kinase 119 Troponin I < 0.012 NT-Pro-B Natriuret Pep 111 Impressions: Chest X-Ray 06/07/20 07:42 IMPRESSION: Hypoventilated exam with mild patchy airspace opacities at the lung bases which may represent atelectasis or infection. Recommend radiographic follow-up. Chest/Abdomen CTA 06/07/20 09:18 IMPRESSION: 1. No PE. 2. Bilateral pneumonia. Assessment and Plan - Diagnosis (1) Acute hypoxemic respiratory failure Is this a current diagnosis for this admission?: Yes (2) Community acquired pneumonia Is this a current diagnosis for this admission?: Yes (3) COPD (chronic obstructive pulmonary disease) Qualifiers: COPD type: COPD with acute exacerbation Qualified Code(s): J44.1 - Chronic obstructive pulmonary disease with (acute) exacerbation Is this a current diagnosis for this admission?: Yes (4) Suspected COVID-19 virus infection Is this a current diagnosis for this admission?: Yes - Plan Summary Summary: Mrs. Fuller is a 60 year old current 1.5 PPD smoker with past medical history of COPD on 2L home oxygen who presents to the ED with chief complaint of increasing cough and shortness of breath x2 days. She reports having severe right-sided chest pain which she states feels similar to a right pneumothorax which she had in 2007. She mentions that she has an inhaler, nebulizer, and Trelegy at home and takes all medications as prescribed. Denies fever, chills, nausea/vomiting/diarrhea, sore throat, runny nose, or headache. 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 In the ED, she was found to have acute hypoxemic respiratory failure. CTA of her chest was notable for bilateral pneumonia, no evidence of pneumothorax and negative for PE. She has been started on treatment for community-acquired pneumonia with ceftriaxone and azithromycin. She will also be treated for possible COPD exacerbation with steroids and DuoNeb treatments. She was negative for COVID-19 infection. Influenza negative. Today, she states that she feels back to her baseline, but is still requiring supplemental O2 to maintain saturation >88%. She is known to have chronic hypoxemia due to COPD and has previously been prescribed Home O2, although she had not been using it regularly. Today, ambulatory saturation shows desaturations into the low 80s% on room air. I suspect that her acute pneumonia and COPD exacerbation have improved, but that her hypoxemia will not resolve, as it is likely to be a chronic issue. She needs to restart wearing home oxygen therapy. Discharge planning consulted for home O2 needs. Restart home medications for treatment of chronic pain. Given her age, high dose Fentanyl/oxycodone dosage, and concomitant benzodiazepine usage, she is at high risk for accidental overdose. She should be discharged with a prescription for Narcan. She should be tapered off of these medication in the long-term by a longitudinal provider. She should be educated on her high risk for falls and other negative outcomes due to these medications. She is an active 1.5 PPD smoker. She was counseled on smoking cessation. She understands risk of /[place]/explosions when oxygen and cigarettes are mixed. She will be treated with nicotine patches while inpatient. Refer to [id number] upon discharge. DVT ppx: Lovenox Code Status: FULL CODE Dispo: likely discharge home tomorrow with home O2 therapy - Time Time Spent with patient: 35 or more minutes Anticipated Discharge Disposition: Home, Self Care Anticipated Discharge Timeframe: within 24 hours
[2020-06-09] MEDS: LORATADINE 10 MG TABLET PO SCH (21:33)
[2020-06-09] MEDS: MONTELUKAST SODIUM 10 MG TABLET PO SCH (21:33)
[2020-06-09] MEDS: ATORVASTATIN CALCIUM 10 MG TABLET PO SCH (21:34)
[2020-06-09] MEDS: ZOLPIDEM TARTRATE 5 MG TABLET PO SCH (21:34)
[2020-06-10] MEDS: BUPROPION HCL 100 MG TABLET PO SCH (05:39)
[2020-06-10] MEDS: PANTOPRAZOLE SODIUM 40 MG TABLET.DR PO SCH (05:39)
[2020-06-10] MEDS: ROPINIROLE HCL 0.25 MG TABLET PO SCH (05:39)
[2020-06-10] MEDS: NAPROXEN 250 MG TABLET PO SCH (09:16)
[2020-06-10] MEDS ORDERED: FENTANYL 50 MCG/HR PATCH.TD72 TD SCH (10:00)
[2020-06-10 11:07] VITALS: BP 118/51
[2020-06-10] MEDS: AZITHROMYCIN 250 MG TABLET PO SCH (11:45)
[2020-06-10] MEDS: PREDNISONE 20 MG TABLET PO SCH (11:45)
[2020-06-10] MEDS: BUSPIRONE HCL 10 MG TABLET PO SCH (11:45)
[2020-06-10] MEDS: PREGABALIN 100 MG CAPSULE PO SCH (11:45)
[2020-06-10] MEDS: SERTRALINE HCL 50 MG TABLET PO SCH (11:46)
[2020-06-10] MEDS: GUAIFENESIN 600 MG TABLET.SA PO SCH (11:46)
[2020-06-10] MEDS: ENOXAPARIN SODIUM INJ 40 MG/0.4 ML DISP.SYRIN SUBCUT SCH (11:55)
[2020-06-10] MEDS: NICOTINE 21 MG/24 HR PATCH.TD24 TD SCH (11:56)
--- NOTE | 2020-06-10 12:16 | PDOC DISCHARGE SUMMARY ---
Impression - Admit/DC Date/PCP Admission Date/Primary Care Provider: 06/07/20 15:17 JAREN SHARMA MD Discharge Date: 06/10/20 - Discharge Diagnosis (1) Acute hypoxemic respiratory failure Is this a current diagnosis for this admission?: Yes (2) Community acquired pneumonia Is this a current diagnosis for this admission?: Yes (3) COPD (chronic obstructive pulmonary disease) Is this a current diagnosis for this admission?: Yes (4) Suspected COVID-19 virus infection Is this a current diagnosis for this admission?: Yes - Assessment Summary: Mrs. Fuller is a 60 year old current 1.5 PPD smoker with past medical history of COPD on 2L home oxygen who presented to the ED with chief complaint of increasing cough and shortness of breath x2 days. She reported having severe right-sided chest pain which she states feels similar to a right pneumothorax which she had in 2007. She mentions that she has an inhaler, nebulizer, and Trelegy at home and takes all medications as prescribed. Denies fever, chills, nausea/vomiting/diarrhea, sore throat, runny nose, or headache. 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 In the ED, she was found to have acute hypoxemic respiratory failure. CTA of her chest was notable for bilateral pneumonia, no evidence of pneumothorax and negative for PE. She was started on treatment for community-acquired pneumonia with ceftriaxone and azithromycin. She will also be treated for possible COPD exacerbation with steroids and DuoNeb treatments. She was negative for COVID-19 infection. Influenza negative. Today, she states that she feels back to her baseline, but is still requiring supplemental O2 to maintain saturation >88%. She is known to have chronic hypoxemia due to COPD and has previously been prescribed Home O2, although she had not been using it regularly. Ambulatory saturation shows desaturations into the low 80s% on room air. I suspect that her acute pneumonia and COPD exacerbation have resolved at this point and that her current hypoxemia is actually chronic and her baseline. She needs to restart wearing home oxygen therapy. Discharge planning consulted for home O2 needs. Restart home medications for treatment of chronic pain. Given her age, high dose Fentanyl/oxycodone dosage, and concomitant benzodiazepine usage, she is at high risk for accidental overdose. She was discharged with a prescription for Narcan. She should be tapered off of these medication in the long-term by a longitudinal provider. She was educated on her high risk for falls and other negative outcomes due to these medications. She was strongly advised to stop driving while on these medications. She is an active 1.5 PPD smoker. She was counseled on smoking cessation. She understands risk of /azevedo/explosions when oxygen and cigarettes are mixed. She was treated with nicotine patches while inpatient and referred to [id number] upon discharge. - Additional Information Discharge Diet: Regular Discharge Activity: Activity As Tolerated, No Driving Referrals: JAREN SHARMA MD [Primary Care Provider] - 06/23/20 5:00 pm Prescriptions: Prednisone [Deltasone 20 mg Tablet] 20 mg PO DAILY #2 tablet Naloxone HCl [Narcan] 4 mg NS ASDIR PRN #1 spray PRN Reason: opioid reversal Azithromycin [Zithromax 250 mg Tablet] 250 mg PO DAILY #2 tablet Home Medications: Loratadine [Claritin 10 mg Tablet] 10 mg PO DAILY 08/12/13 Albuterol Sulfate [Albuterol Sulfate Hfa] 2 puff IH QIDP PRN 06/08/20 Alprazolam [Xanax] 1 mg PO BIDP PRN 06/08/20 Aripiprazole 15 mg PO DAILY 06/08/20 Brexpiprazole [Rexulti] 1 mg PO DAILY 06/08/20 Bupropion HCl [Bupropion Xl] 300 mg PO QAM 06/08/20 Buspirone HCl 30 mg PO BID 06/08/20 Cetirizine HCl [Zyrtec] 10 mg PO DAILY 06/08/20 Ergocalciferol (Vitamin D2) [Drisdol 50,000 unit (1.25MG) Capsule] 1 tab PO MO@1000 06/08/20 Eszopiclone [Lunesta] 2 mg PO QHS 06/08/20 Fentanyl [Duragesic 50 Mcg/Hr Transdermal Patch] 1 each TD Q3D 06/08/20 Fluticasone/Umeclidin/Vilanter [Trelegy 100-62.5-25 Mcg Ellipta 14 Dose/Dpi] 1 puff PO DAILY 06/08/20 Methocarbamol [Robaxin 750 mg Tablet] 750 mg PO TID 06/08/20 Naproxen 500 mg PO Q12HP PRN 06/08/20 [place]-3 Acid Ethyl Esters 1 tab PO DAILY 06/08/20 Oxycodone HCl [Oxy-Ir 5 mg Tablet] 10 mg PO QID 06/08/20 Pantoprazole Sodium 40 mg PO DAILY 06/08/20 Pravastatin Sodium 80 mg PO DAILY 06/08/20 Pregabalin [Lyrica 100 mg Capsule] 100 mg PO BID 06/08/20 Primidone [Mysoline] 50 mg PO BID 06/08/20 Sertraline HCl 150 mg PO DAILY 06/08/20 Trazodone HCl 100 mg PO QHS 06/08/20 Azithromycin [Zithromax 250 mg Tablet] 250 mg PO DAILY #2 tablet 06/10/20 Naloxone HCl [Narcan] 4 mg NS ASDIR PRN #1 spray 06/10/20 Prednisone [Deltasone 20 mg Tablet] 20 mg PO DAILY #2 tablet 06/10/20 History of Present Illiness History of Present Illness: STEVEN FULLER is a 60 year old female current 1.5 PPD smoker with past med ical history of COPD not on home oxygen who presents to the ED with chief complaint of increasing cough and shortness of breath x2 days. She reports having severe right-sided chest pain which she states feels similar to a right pneumothorax which she had in 2007. She mentions that she has an inhaler, nebulizer, and Trelegy at home and takes all medications as prescribed. Denies fever, chills, nausea/vomiting/diarrhea, sore throat, runny nose, or headache. 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 Physical Exam Vital Signs: Temp Pulse Resp BP Pulse Ox 98.7 F 109 H 18 118/51 L 96 06/10/20 11:05 06/10/20 11:05 06/10/20 11:05 06/10/20 11:05 06/10/20 11:05 Intake & Output 06/09/20 06/10/20 06/11/20 06:59 06:59 06:59 Intake Total 1520 3067 Balance 1520 3067 Weight 74.2 kg 75.1 kg Results Laboratory Results: WBC 13.6 10^3/uL (4.0-10.5) H 06/09/20 09:30 RBC 4.28 10^6/uL (3.72-5.28) 06/09/20 09:30 Hgb 13.3 g/dL (12.0-15.5) 06/09/20 09:30 Hct 38.9 % (36.0-47.0) 06/09/20 09:30 MCV 91 fl (80-97) 06/09/20 09:30 MCH 31.1 pg (27.0-33.4) 06/09/20 09:30 MCHC 34.3 g/dL (32.0-36.0) 06/09/20 09:30 RDW 14.0 % (11.5-14.0) 06/09/20 09:30 Plt Count 187 10^3/uL (150-450) 06/09/20 09:30 Lymph % (Auto) 5.6 % (13-45) L 06/09/20 09:30 [place] % (Auto) 6.5 % (3-13) 06/09/20 09:30 Eos % (Auto) 1.0 % (0-6) 06/09/20 09:30 Baso % (Auto) 0.2 % (0-2) 06/09/20 09:30 Absolute Neuts (auto) 11.8 10^3/uL (1.7-8.2) H 06/09/20 09:30 Absolute Lymphs (auto) 0.8 10^3/uL (0.5-4.7) 06/09/20 09:30 Absolute Monos (auto) 0.9 10^3/uL (0.1-1.4) 06/09/20 09:30 Absolute Eos (auto) 0.1 10^3/uL (0.0-0.6) 06/09/20 09:30 Absolute Basos (auto) 0.0 10^3/uL (0.0-0.2) 06/09/20 09:30 Total Counted 100 06/08/20 08:20 Seg Neutrophils % 86.7 % (42-78) H 06/09/20 09:30 Seg Neuts % (Manual) 84 % (42-78) H 06/08/20 08:20 Band Neutrophils % 2 % (3-5) L 06/08/20 08:20 Lymphocytes % (Manual) 7 % (13-45) L 06/08/20 08:20 Atypical Lymphs % 2 % (0) 06/08/20 08:20 Monocytes % (Manual) 5 % (3-13) 06/08/20 08:20 Eosinophils % (Manual) 0 % (0-6) 06/08/20 08:20 Basophils % (Manual) 0 % (0-2) 06/08/20 08:20 Abs Neuts (Manual) 14.0 10^3/uL (1.7-8.2) H 06/08/20 08:20 Abs Lymphs (Manual) 1.5 10^3/uL (0.5-4.7) 06/08/20 08:20 Abs Monocytes (Manual) 0.8 10^3/uL (0.1-1.4) 06/08/20 08:20 Absolute Eos (Manual) 0.0 10^3/uL (0.0-0.6) 06/08/20 08:20 Abs Basophils (Manual) 0.0 10^3/uL (0.0-0.2) 06/08/20 08:20 Platelet Comment ADEQUATE 06/08/20 08:20 Polychromasia SLIGHT 06/08/20 08:20 Anisocytosis SLIGHT 06/08/20 08:20 PT 13.9 SEC (11.4-15.4) 06/07/20 10:23 INR 1.05 06/07/20 10:23 INR (Anticoag Therapy) Cancelled 06/07/20 08:11 APTT 36.4 SEC (23.5-35.8) H 06/07/20 10:23 D-Dimer 0.48 ug/mL (0.00-0.50) 06/07/20 10:23 Sodium 139.0 mmol/L (137-145) 06/09/20 09:30 Potassium 3.4 mmol/L (3.6-5.0) L 06/09/20 09:30 Chloride 109 mmol/L (98-107) H 06/09/20 09:30 Carbon Dioxide 23 mmol/L (22-30) 06/09/20 09:30 Anion Gap 7 (5-19) 06/09/20 09:30 BUN 14 mg/dL (7-20) 06/09/20 09:30 Creatinine 0.53 mg/dL (0.52-1.25) 06/09/20 09:30 Est GFR ( Amer) > 60 (>60) 06/09/20 09:30 Est GFR (MDRD) Non-Af > 60 (>60) 06/09/20 09:30 Glucose 111 mg/dL (75-110) H 06/09/20 09:30 POC Glucose 122 mg/dL (70-110) H 06/07/20 08:22 Hemoglobin A1c % 5.3 % (4.7-6.0) 06/08/20 08:20 Lactic Acid 2.0 mmol/L (0.7-2.1) 06/07/20 08:11 Calcium 8.3 mg/dL (8.4-10.2) L 06/09/20 09:30 Magnesium 2.1 mg/dL (1.6-2.3) 06/09/20 09:30 Total Bilirubin 0.8 mg/dL (0.2-1.3) 06/08/20 08:20 Direct Bilirubin 0.3 mg/dL (0.0-0.4) 06/08/20 08:20 Neonat Total Bilirubin Not Reportable 06/08/20 08:20 Neonat Direct Bilirubin Not Reportable 06/08/20 08:20 Neonat Indirect Bili Not Reportable 06/08/20 08:20 AST 24 U/L (14-36) 06/08/20 08:20 ALT 14 U/L (<35) 06/08/20 08:20 Alkaline Phosphatase 94 U/L (38-126) 06/08/20 08:20 Creatine Kinase 119 U/L (30-135) 06/07/20 08:11 Troponin I < 0.012 ng/mL 06/07/20 08:11 NT-Pro-B Natriuret Pep 111 pg/mL (<125) 06/07/20 08:11 Total Protein 5.4 g/dL (6.3-8.2) L 06/08/20 08:20 Albumin 3.1 g/dL (3.5-5.0) L 06/08/20 08:20 Triglycerides 105 mg/dL (<150) 06/08/20 08:20 Cholesterol 147.85 mg/dL (0-200) 06/08/20 08:20 LDL Cholesterol Direct 72 mg/dL (<100) 06/08/20 08:20 VLDL Cholesterol 21.0 mg/dL (10-31) 06/08/20 08:20 HDL Cholesterol 44 mg/dL (>40) 06/08/20 08:20 Lipase 27.9 U/L (23-300) 06/07/20 08:11 Urine Color YELLOW 06/07/20 11:48 Urine Appearance CLEAR 06/07/20 11:48 Urine pH 7.0 (5.0-9.0) 06/07/20 11:48 Ur Specific [place] 1.042 06/07/20 11:48 Urine Protein NEGATIVE mg/dL (NEGATIVE) 06/07/20 11:48 Urine Glucose (UA) NEGATIVE mg/dL (NEGATIVE) 06/07/20 11:48 Urine Ketones NEGATIVE mg/dL (NEGATIVE) 06/07/20 11:48 Urine Blood NEGATIVE (NEGATIVE) 06/07/20 11:48 Urine Nitrite NEGATIVE (NEGATIVE) 06/07/20 11:48 Urine Bilirubin NEGATIVE (NEGATIVE) 06/07/20 11:48 Urine Urobilinogen NEGATIVE mg/dL (<2.0) 06/07/20 11:48 Ur Leukocyte Esterase NEGATIVE (NEGATIVE) 06/07/20 11:48 Urine WBC (Auto) 0 /HPF 06/07/20 11:48 Urine RBC (Auto) 2 /HPF 06/07/20 11:48 Squamous Epi Cells Auto 1 /HPF 06/07/20 11:48 Urine Mucus (Auto) RARE /LPF 06/07/20 11:48 Urine Ascorbic Acid NEGATIVE (NEGATIVE) 06/07/20 11:48 COVID-19 Source NASOPHARYNGEAL 06/07/20 10:53 COVID-19 (ISMAEL) NOT DETECTED 06/07/20 10:53 Influenza A (Rapid) NEGATIVE (NEGATIVE) 06/07/20 14:20 Influenza B (Rapid) NEGATIVE (NEGATIVE) 06/07/20 14:20 Group A Strep Rapid NEGATIVE (NEGATIVE) 06/07/20 08:48 06/07/20 08:11 Troponin I < 0.012 NT-Pro-B Natriuret Pep 111 Impressions: Chest X-Ray 06/07/20 07:42 IMPRESSION: Hypoventilated exam with mild patchy airspace opacities at the lung bases which may represent atelectasis or infection. Recommend radiographic follow-up. Chest/Abdomen CTA 06/07/20 09:18 IMPRESSION: 1. No PE. 2. Bilateral pneumonia. Stroke Is this a Stroke Patient?: No Acute Heart Failure Is this a Heart Failure Patient?: No
== END 2020-06-10 12:30 | disposition home health service (06) | DRG 193 ==
LOC: ER 07:30 → EH 15:17 → 3N 16:38
PROVIDERS: ADMIT Hospitalist; ATTEND Hospitalist
DX: J18.9 Pneumonia, unspecified organism (principal); J96.21 Acute and chronic respiratory failure with hypoxia; J44.0 Chronic obstructive pulmonary disease with (acute) lower respiratory infection; J44.1 Chronic obstructive pulmonary disease with (acute) exacerbation; G43.409 Hemiplegic migraine, not intractable, without status migrainosus; Z99.81 Dependence on supplemental oxygen; F17.200 Nicotine dependence, unspecified, uncomplicated; G89.29 Other chronic pain; E78.5 Hyperlipidemia, unspecified; F32.9 Major depressive disorder, single episode, unspecified; Z11.59 Encounter for screening for other viral diseases; Z71.6 Tobacco abuse counseling; Z79.52 Long term (current) use of systemic steroids; Z79.51 Long term (current) use of inhaled steroids; Z86.718 Personal history of other venous thrombosis and embolism; Z88.2 Allergy status to sulfonamides
CPT/HCPCS: 36415; 71045; 71275; 80048; 80053; 80061; 81001; 82550; 82962; 83036; 83605; 83690; 83735; 83880; 84484; 85025; 85379; 85610; 85730; 87040; 87070; 87635; 87804; 87880; 93005; 93010; 94640; 96361; 96365; 96366; 96367; 99285; C9803; J0456; J0692; J0696; J1650; J3370; J3490; J7030; J7040; J7060; J7512; J7613